=== PATIENT | female | born 1960 | race Caucasian/White ===

== ENCOUNTER 2016-12-05 09:08 | Day surgery (SDC) | payer MEDICARE, BC ==
[2016-12-03 15:42] VITALS: BMI 33.2
[2016-12-05 09:20] VITALS: RESP 16; TEMP 97.9
[2016-12-05] MEDS ORDERED: LACTATED RINGERS 1,000 ML IV SCH (09:30)
[2016-12-05] MEDS ORDERED: TRIAMCINOLONE ACETONIDE 40 MG/ML 1 ML VIAL ONE (09:59)
[2016-12-05] MEDS ORDERED: BUPIVACAINE (PF) 0.5% 30 ML VIAL ONE (09:59)
--- NOTE | 2016-12-05 10:20 | P.PCN ---
Date of Procedure: 12/05/16 Preoperative Diagnosis: Bilateral sacroiliitis Postoperative Diagnosis: Same as above Procedure(s) Performed: Bilateral sacroiliac joint steroid injection under fluoroscopic guidance Anesthesia: MAC, local Surgeon: Willam Mancera Pathology: none sent Condition: stable Disposition: PACU Description of Procedure: The patient was seen in preop holding area consent was obtained then she was brought into the procedure room and placed in prone position. Skin was prepped with ChloraPrep and draped in a sterile manner. Lidocaine 1% was used to numb the skin up at the target points that were chosen as follows: The left sacroiliac joint injection was done first and the C-arm was tilted to the left oblique position with a slight cephalad tilt to superimpose the anterior and posterior joint lines on each other and to get a unified joint line and the target point was at the inferior one third of this unified joint line. I Used 22-gauge 3-1/2 inch Quincke spinal needle for this procedure and after entering the sacroiliac joint I injected 20 mg of Kenalog +2.5 MLS of Marcaine 0.5%. the right sacroiliac joint then was done in the same manner using 20 mg of Kenalog. I gave a total of only 40 mg of Kenalog for this procedure. Patient tolerated procedure well.
--- NOTE | 2016-12-05 10:29 | FL ---
Fluoroscopy HISTORY: Pain 26 seconds fluoroscopy time supplied to the referring clinician. 2 intraoperative C-arm images docum ent the procedure. See dictated report from anesthesia.
[2016-12-05 10:53] VITALS: BP 132/77; PULSE 84
== END 2016-12-05 11:14 | disposition home or self-care (01) ==
LOC: ORPAIN 09:08
PROVIDERS: ATTEND Anesthesiology
DX: M46.1 Sacroiliitis, not elsewhere classified (principal); Z88.5 Allergy status to narcotic agent
CPT/HCPCS: J3301; G0260

== ENCOUNTER → 2016-12-31 | Outpatient (CLI) | payer MEDICARE, BC ==
[2016-12-31 13:41] VITALS: BP 121/82; PULSE 99; RESP 18
--- NOTE | 2016-12-31 14:19 | P.PN ---
Subjective This is follow-up visit for this patient with a history of severe and chronic low back pain secondary to bilateral sacroiliitis, lumbar degenerative disc disease lumbar spondylosis, failed back surgery syndrome lumbar area, we have done interventional pain management injection, bilateral sacroiliac joint steroid injections x3 , and patient will get excellent pain relief (more than 50% reduction in her pain ), after the injection, and is currently on pain medications 1-[place] 10/325 every 4-6 hours 2-Flexeril 10 mg 3 times a day when necessary 3-Cymbalta to 120 mg every the Patient denies any side effects of the medication, denies excessive drowsiness or sleepiness, denies suicidal ideation, and reports that the current pain medication is NOT helping To control the pain and improve activity of daily living Physical Examinations : 1-Constitutiona : Cooperative , not in acute distress . 2-HEENT : nech ; supple , no Lymphadenopathy , no Thyromegaly , normal thyroid size . eyes : no ptosis , no icterus, no photophobia . ENT : normal of hearing , normal oropharynx , no Thrush . 3- Respiratory : Chest clear to auscultations Bilaterally , no wheezing , no Rhonchi . 4- Cardiovascular : regular rate and rhythem , S1 , S2 , no S3 , no S4. 5- Gastrointestinal : abdomen soft no tenderness , bowel sounds positive all four quadrents , no organomegally . 6- Genitourinary : Defferred . 7- neurologic : Cranial nerve II to XII intact , no focal neurological deffecit . 8-psychatric : alert , oriented X 3 , appropriate affect , intact judgment and insight . 9-Lymphatic : no Lymphadenopathy . 10- musculoskeltal : exams of the cervical spine = motor strength normal bilateral upper extremities facet loading test cervical area positive. exams of the Lumber spine = motor strength lower extremities ,thigh and legs .5/5 deep tendon reflexes : normal Knee Jerk , normal ankle Jerk . lumber facet Loading Test positive strait leg raising test positive at 30 degree , RT ,LT , Fabere test positive RT and positive LT . Range of motion: Range of motion in flexion of the lumbar spine 30 degrees Range of motion range of motion of extension of the lumbar spine 10 Sever tenderness over the Sacroiliac joint on the Right , and Left side Assessment and plan = - Chronic low back pain secondary to lumbar degenerative disc disease , lumbar spondylosis, sacroiliitis, and failed back surgeries in the lumbar area , - The patient had more than 50% improvement in her low back pain after the bilateral sacroiliac joint steroid injections , - diagnoses, prognosis, and treatment options including but not limited to physical therapy, surgical interventions, interventional therapies , and medication management including narcotics and adjuvant medication were discussed with the patient and all The questions answered -medication management = she is getting medications refilled from her primary care -procedure= schedule patient to have radiofrequency ablation of the dorsal ramus of L5-S1, and radiofrequency ablation of the lateral branches of S1/S2/S3 he will start on the right side, then later on we do the left side Objective - Vital Signs Vital signs: Vital Signs Temp Pulse 99 12/31/16 13:34 Resp 18 12/31/16 13:34 BP 121/82 12/31/16 13:34 Pulse Ox 97 12/31/16 13:34 Intake & Output 12/30/16 12/31/16 12/31/16 18:59 06:59 18:59 Weight 96.162 kg
== END | disposition home or self-care (01) ==
LOC: PNWHC3 13:17
PROVIDERS: ATTEND Specialist
DX: M51.36 Other intervertebral disc degeneration, lumbar region (principal); M47.896 Other spondylosis, lumbar region; M46.1 Sacroiliitis, not elsewhere classified; M96.1 Postlaminectomy syndrome, not elsewhere classified; Z79.899 Other long term (current) drug therapy
CPT/HCPCS: 99211

== ENCOUNTER 2017-01-11 09:06 | Day surgery (SDC) | payer MEDICARE, BC ==
[2017-01-10 09:25] VITALS: BMI 32.8
[~2017-01-11 09:06] MED LIST: LACTATED RINGERS 1,000 ML IV SCH
[2017-01-11 09:35] VITALS: TEMP 97.8
[2017-01-11] MEDS ORDERED: LIDOCAINE 1% 20 ML VIAL (10MG/ML) FOR IV START INTRADERMA ONE (09:44)
[2017-01-11] MEDS ORDERED: fentaNYL (PF) 50 MCG/ML 2 ML AMP ONE (10:42)
[2017-01-11] MEDS ORDERED: BUPIVACAINE (PF) 0.5% 30 ML VIAL ONE (10:42)
[2017-01-11] MEDS ORDERED: TRIAMCINOLONE ACETONIDE 40 MG/ML 1 ML VIAL ONE (10:42)
[2017-01-11] MEDS ORDERED: MIDAZOLAM 2 MG/2 ML VIAL ONE (10:42)
[2017-01-11] MEDS ORDERED: IV FLUID CONTINUATION 1,000 ML IV ONE (11:38)
[2017-01-11 11:40] VITALS: RESP 18
[2017-01-11 11:49] VITALS: BP 130/71; PULSE 80
--- NOTE | 2017-01-11 12:27 | FL ---
Fluoroscopy HISTORY: Pain 30 seconds fluoroscopy time supplied to the referring clinician. 3 intraoperative C-arm images docum ent the procedure. See dictated report from anesthesia.
--- NOTE | 2017-01-11 12:34 | P.PCN ---
Date of Procedure: 01/11/17 Procedure(s) Performed: PREOPERATIVE DIAGNOSIS: 1-Lumbosacral spondylosis with facet arthropathy without myelopathy. 2- Bilateral sacroiliit. post operative Diagnosis: . 1-Lumbosacral spondylosis with facet arthropathy without myelopathy. 2-bilateral sacroiliit. PROCEDURES: 1- Right radiofrequency thermocoagulation/ablation of the L5 dorsal ramus. 2- Right multi-site radiofrequency thermocoagulation/ablation of the S1 and S2 , The procedure was performed using fluoroscopic guidance during needle placement to assure proper position and maximize safety . ANESTHESIA: LOCAL ANESTHESIA and IV sedation with versed 2 mg and Fentanyle 100 mcg EBL: NONE INDICATION/MEDICAL NECESSITY: History of low back pain secondary to bilateral sacroiliitis and lumbosacral arthropathy unresponsive to more conservative treatments. The patient reported more than 50% relief of pain symptoms following 2 previous diagnostic blocks with Bupivacaine. PROCEDURE DESCRIPTION: The patient was seen and identified in the preoperative area. Risks, benefits, complications, and alternatives were discussed with the patient. The patient agreed to proceed with the procedure and signed the consent. Vital signs were checked before and after the procedure and they remained stable. Patient ambulated to the procedure room and time out was completed. The patient was placed in the prone position on the procedure table and a pillow was placed under the abdomen to reduce lumbar lordosis. The lumbosacral area was prepped and draped in the usual sterile fashion. Critical pause was taken. L5 Dorsal Ramus RF: Using right oblique fluoroscopy, the junction of the transverse process and the superior articular process of the right S1 vertebra, which correspond to the fluoroscopic image of the "eye of the [place] dog" was identified. Subsequently, a 10-cm 20 -gauge radiofrequency cannula with a 10-mm active tip was advanced under fluoroscopic guidance until contact was made with periosteum. At this level, the Sensory testing of the L5 dorsal ramus was performed at 50 Hz and 0 to 1 volt with production of concordant pain starting at 0.5 volt. Motor stimulation was done at 2.5 Hz with stimulation of mulitifidus muscle contration . No radicular symptoms or paresthesias were produced during the testing. Subsequently, the L5 dorsal ramus was subjected to a radiofrequency ablation at 80 degree celsius for 90 seconds . after 0.5% Bupivacaine 1 ml injected at each level after negative aspirations . The needle was withdrawn intact the procedure was repeated on the left side using the same technique. S1, S3, and S3 Lateral Branch RF: The lateral margins of the Right S1, S2, and S3 foramina were identified using AP fluoroscopy. Under fluoroscopic guidance, three 10-cm 20 -gauge radiofrequency cannula with a 10-mm active tip were inserted at 8-10 mm peripheral to the posterior S1 foramen, at various locations using clock-face coordinates. The center of the clock was registered at the lateral margin of the foramen. The 2:30, 4:00, and 5:30 oclock positions were used. At this level , the sensory testing of the S1 lateral branch was performed at 50 Hz and 0 to 1 volt at the three levels with production of concordant pain starting at 0.5 volt. Motor stimulation was done at 2.5 Hz. No radicular symptoms or paresthesias were produced during the testing. Subsequently, the S1 lateral branch was subjected to a radiofrequency ablation at a mode of 90 seconds at 80 degrees Celsius at the 3 levels after negative motor and sensory testing and after injecting 0.5 ml of preservative free Bupivacaine 0.5 %. The same procedure was performed at the level of the S2 foramen. Multiple attempts done to visualize S3 foramina was not successful, for this reason , I did not do the radiofrequency of the lateral branches of S3 The needle was withdrawn intact after each injection. COMPLICATIONS: The patient tolerated the procedure well without any acute complications. DISPOSTION/PLAN: The patient ambulated to the recovery area after the procedure in a stable condition for observation. Patient was reexamined prior to discharge. Patient was observed for 30 minutes in the recovery area and was discharged home, accompanied by an adult, after meeting discharged criteria. Discharge instructions were give to the patient by the staff. Patient was specifically instructed not to drive today and to rest for the rest of the day. The patient will schedule a follow up visit in the clinic in weeks or earlier if needed.
== END 2017-01-11 11:57 | disposition home or self-care (01) ==
LOC: ORPAIN 09:06
PROVIDERS: ATTEND Specialist
DX: M47.817 Spondylosis without myelopathy or radiculopathy, lumbosacral region (principal); M46.97 Unspecified inflammatory spondylopathy, lumbosacral region; M46.1 Sacroiliitis, not elsewhere classified; Z88.5 Allergy status to narcotic agent
CPT/HCPCS: 64640 ×2; 64635; 99152; 99153; J2250; J3301; J3010; 64636

== ENCOUNTER → 2017-04-01 | Outpatient (CLI) | payer MEDICARE, BC ==
[2017-04-01 12:57] VITALS: BP 188/96; PULSE 100; RESP 18; TEMP 98.5
--- NOTE | 2017-04-01 13:15 | P.PN ---
Subjective This is follow-up visit for this patient with a history of severe and chronic low back pain secondary to sacroiliitis and , lumbar spondylosis with facet arthropathy, we have done interventional pain management injection,,, RFA of the dorsal dryness of L5-S1 and RFA the lateral branches S1,S2 ,S3 patient currently doing very well she reports that her pain is under control, she is using Tylenol when necessary and she was occasionally [place] 10/325 Patient denies any side effects of the medication, denies excessive drowsiness or sleepiness, denies suicidal ideation, and reports that the current pain medication is NOT helping To control the pain and improve activity of daily living Patient denies any motor or sensory deficit , patient denies any fever or night sweats, denies any change in the bowel movements or urination Physical Examinations : 1-Constitutiona : Cooperative , not in acute distress . 2-HEENT : nech ; supple , no Lymphadenopathy , no Thyromegaly , normal thyroid size . eyes : no ptosis , no icterus, no photophobia . ENT : normal of hearing , normal oropharynx , no Thrush . 3- Respiratory : Chest clear to auscultations Bilaterally , no wheezing , no Rhonchi . 4- Cardiovascular : regular rate and rhythem , S1 , S2 , no S3 , no S4. 5- Gastrointestinal : abdomen soft no tenderness , bowel sounds positive all four quadrents , no organomegally . 6- Genitourinary : Defferred . 7- neurologic : Cranial nerve II to XII intact , no focal neurological deffecit . 8-psychatric : alert , oriented X 3 , appropriate affect , intact judgment and insight . 9-Lymphatic : no Lymphadenopathy . 10- musculoskeltal : exams of the Lumber spine = motor strength lower extremities ,thigh and legs .03/22 Assessment and plan = - Chronic low back pain secondary to sacroiliitis , lumbar spondylosis with facet arthropathy without myelopathy , Status post radiofrequency ablation of the sacroiliac joint, patient doing very well, she will follow up with the pain clinic when necessary Patient getting prescription from the primary care Objective - Vital Signs Vital signs: Vital Signs Temp 98.5 F 04/01/17 12:48 Pulse 100 04/01/17 12:48 Resp 18 04/01/17 12:48 BP 188/96 04/01/17 12:48 Pulse Ox 97 04/01/17 12:48 Intake & Output 03/31/17 04/01/17 04/01/17 18:59 06:59 18:59 Weight 98.883 kg
== END | disposition home or self-care (01) ==
LOC: PNWHC3 12:10
PROVIDERS: ATTEND Specialist
DX: M47.816 Spondylosis without myelopathy or radiculopathy, lumbar region (principal); M46.86 Other specified inflammatory spondylopathies, lumbar region; M46.1 Sacroiliitis, not elsewhere classified
CPT/HCPCS: 99211

== ENCOUNTER → 2017-08-20 | Outpatient (CLI) | payer MEDICARE, BC ==
[2017-08-20 13:59] VITALS: BP 130/69; PULSE 97; RESP 18; TEMP 98
--- NOTE | 2017-08-20 20:02 | P.CONS ---
History of Present Illness - Reason for Consult Consult date: 08/20/17 - History of Present Illness This is follow-up visit for this patient with a history of severe and chronic low back pain secondary to sacroiliitis , lumbar facet arthropathy, we did interventional pain management injection,, radiofrequency ablation of the sacroiliac joint we've done the right side in December 2016 , and later on we did the radiofrequency of the left sacroiliac joint in February 2017 , she had more than 80% decrease in her pain level after the radiofrequency , she had improved activity of daily livings and she hasn't improved quality of life . Patient denies any motor or sensory deficit, denies change in bowel movement or urination, patient denies any fever or night sweats Past Medical History Past Medical History: COPD, Diabetes Mellitus, GERD/Reflux, Hyperlipidemia, Hypertension, Musculoskeletal Disorder, Respiratory Disorder, Thyroid Disorder Additional Past Medical History / Comment(s): Glaucoma. DIABETIC -DIET CONTROLLED History of Any Multi-Drug Resistant Organisms: None Reported Past Surgical History: Appendectomy, Back Surgery, Section, Cholecystectomy, Hernia Repair, Hysterectomy Additional Past Surgical History / Comment(s): Lumbar fusion X2, LAST with rods and screws. colonoscopy; laparoscopy; right inguinal repair; right breast biopsy; D&C; C-S x 5; right hand surgery; Pain procedures , right and left eye muscle surgery Past Anesthesia/Blood Transfusion Reactions: No Reported Reaction Past Psychological History: Anxiety, Depression, Panic Disorder Additional Psychological History / Comment(s): Borderline personality disorder, Smoking Status: Never smoker Past Alcohol Use History: None Reported Past Drug Use History: None Reported - Past Family History Mother Family Medical History: Cancer Sister(s) Family Medical History: Cancer Medications and Allergies Home Medications Medication Instructions Recorded Confirmed Type Albuterol Sulfate [Proair Hfa] 2 puff INHALATION Q4HR PRN 04/19/14 08/20/17 History Atorvastatin Calcium [Lipitor] 20 mg PO DAILY 04/19/14 08/20/17 History John Paul Cit/Mag/D3/Zn/Sales Assistant/[place]/Bor 2 tab PO DAILY 04/19/14 08/20/17 History [Citracal-Vit D + Magnesium Tab] Cyclobenzaprine [Flexeril] 10 mg PO TID PRN 04/19/14 08/20/17 History DULoxetine HCL [Cymbalta] 120 mg PO DAILY 04/19/14 08/20/17 History Diltiazem Cd [Cardizem CD] 180 mg PO DAILY 04/19/14 08/20/17 History Docusate Sodium [Dulcolax Stool 2 tab PO DAILY 04/19/14 08/20/17 History Softener] LORazepam [Ativan] 2 mg PO TID 04/19/14 08/20/17 History Levothyroxine Sodium [Levoxyl] 25 mcg PO DAILY 04/19/14 08/20/17 History Montelukast [Singulair] 10 mg PO DAILY 04/19/14 08/20/17 History Oxybutynin Chloride [Ditropan XL] 10 mg PO BID 04/19/14 08/20/17 History Pantoprazole Sodium [Protonix] 40 mg PO BID 04/19/14 08/20/17 History Polyethylene Glycol 3350 [Miralax] 1 applic PO BID PRN 04/19/14 08/20/17 History Temazepam [Restoril] 30 mg PO HS PRN 04/19/14 08/20/17 History Topiramate [Topamax] 100 mg PO BID 04/19/14 08/20/17 History buPROPion HCL [Wellbutrin XL] 300 mg PO HS 04/19/14 08/20/17 History buPROPion XL [Wellbutrin XL] 150 mg PO HS 04/19/14 08/20/17 History cloZAPine [Clozaril] 100 mg PO HS 04/19/14 08/20/17 History Aspirin [Adult Low Dose Aspirin EC] 81 mg PO DAILY 12/02/15 08/20/17 History Travoprost [Travatan Z 0.004%] 1 drop BOTH EYES HS 12/02/15 08/20/17 History SUMAtriptan SUCCINATE [Imitrex] 100 mg PO BID PRN 01/24/16 08/20/17 History Potassium Chloride [Klor-Con 8] 8 meq PO BID 02/21/16 08/20/17 History Multivitamins, Thera [Multivitamin 1 tab PO DAILY 04/10/16 08/20/17 History (formulary)] Naloxone [Narcan] 30 mg PO DAILY 08/20/17 08/20/17 History Allergies Allergy/AdvReac Type Severity Reaction Status Date / Time codeine Allergy Rash/Hives, Verified 08/20/17 13:50 VOMITING,ITCHING morphine Allergy Rash/Hives Verified 08/20/17 13:50 Physical Exam Vitals: Vital Signs Temp Pulse Resp BP Pulse Ox 08/20/17 13:54 98 F 97 18 130/69 96 Intake and Output 08/20/17 08/20/17 08/20/17 06:59 14:59 22:59 Other: Weight 106.141 kg Patient Weight 08/21/17 06:59 Weight 106.141 kg Physical Examinations : 1-Constitutiona : Cooperative , not in acute distress . 2-HEENT : nech ; supple , no Lymphadenopathy , normal thyroid size . eyes : no ptosis , no icterus, no photophobia . ENT : normal of hearing , normal oropharynx , no Thrush . 3- Respiratory : Chest clear to auscultations Bilaterally , no wheezing , no Rhonchi . 4- Cardiovascular : regular rate and rhythem , S1 , S2 , no S3 , no S4. 5- Gastrointestinal : abdomen soft no tenderness , bowel sounds positive all four quadrents , no organomegally . 6- Genitourinary : Defferred . 7- neurologic : Cranial nerve II to XII intact , no focal neurological deffecit . 8-psychatric : alert , oriented X 3 , appropriate affect , intact judgment and insight . 9-Lymphatic : no Lymphadenopathy . 10- musculoskeltal : , Lumber spine = normal moter stegnth lower extremities ,thigh and legs .5/5 deep tendon reflexes : normal Knee Jerk , normal ankle Jerk . positive lumber facet Loading Test strait leg raising test negative bilateral, Fabere test negative bilaterally Sever tenderness over the Sacroiliac joint on the Right , and Left side Assessment and Plan Plan: Assessment and plan= chronic low back pain secondary to bilateral sacroiliitis , lumbar spondylosis with lumbar facet arthropathy , Patient had excellent pain relief after the radiofrequency of the sacroiliac joint done more than 6 months ago, and unclean most of the pain is coming from the sacroiliac joint component for this reason patient could benefit from repeat radiofrequency ablation of the sacroiliac joint will start with the right side then later on went to the left side patient will be scheduled to radiofrequency ablation of the dorsal ramus of L5-S1 and radiofrequency ablation of the lateral branches of S1/S2/S3 under fluoroscopy guidance , Time with Patient: Less than 30
== END | disposition home or self-care (01) ==
LOC: PNWHC3 13:40
PROVIDERS: ATTEND Specialist
DX: M47.816 Spondylosis without myelopathy or radiculopathy, lumbar region (principal); M46.86 Other specified inflammatory spondylopathies, lumbar region; M46.1 Sacroiliitis, not elsewhere classified
CPT/HCPCS: 99211

== ENCOUNTER → 2017-09-25 | Outpatient (CLI) | payer MEDICARE, BC ==
[2017-09-25 14:14] VITALS: BP 134/88; PULSE 101; RESP 18; TEMP 98.1
--- NOTE | 2017-09-25 14:52 | P.PN ---
Subjective Progress Note Date: 09/25/17 This is follow-up visit for this patient with a history of severe and chronic low back pain secondary to bilateral sacroiliitis , lumbar spondylosis with facet arthropathy, we have done interventional pain management injection, , radiofrequency ablation of the sacroiliac joint Bilaterally , which was done more than 6 months ago and she got more than 80% improvement of her low back pain that the radiofrequency, currently complaining of severe low back pain and she is due to have a repeat radiofrequency ablation of the sacroiliac joint,. Insurance rejected the procedure, Physical Examinations : 1-Constitutiona : Cooperative , not in acute distress . 2-HEENT : nech ; supple , no Lymphadenopathy , no Thyromegaly , normal thyroid size . eyes : no ptosis , no icterus, no photophobia . ENT : normal of hearing , normal oropharynx , no Thrush . 3- Respiratory : Chest clear to auscultations Bilaterally , no wheezing , no Rhonchi . 4- Cardiovascular : regular rate and rhythem , S1 , S2 , no S3 , no S4. 5- Gastrointestinal : abdomen soft no tenderness , bowel sounds positive all four quadrents , no organomegally . 6- Genitourinary : Defferred . 7- neurologic : Cranial nerve II to XII intact , no focal neurological deffecit . 8-psychatric : alert , oriented X 3 , appropriate affect , intact judgment and insight . 9-Lymphatic : no Lymphadenopathy . 10- musculoskeltal : exams of the cervical spine = motor strength normal bilateral upper extremities facet loading test cervical area positive. exams of the Lumber spine = motor strength lower extremities ,thigh and legs .5/5 deep tendon reflexes : normal Knee Jerk , normal ankle Jerk . lumber facet Loading Test positive strait leg raising test negative bilaterally Fabere test negative bilaterally Range of motion: Range of motion in flexion of the lumbar spine 60 degrees Range of motion range of motion of extension of the lumbar spine 10 Sever tenderness over the Sacroiliac joint on the Right , and Left side Assessment and plan = Chronic low back pain secondary to sacroiliitis , lumbar spondylosis with facet arthropathy without myelopathy , Patient had more than 80% decrease in her low back pain after the radiofrequency ablation of the sacroiliac joint, it would be good candidate to have repeat radiofrequency ablation, the approval for the procedure was rejected by the insurance for this reason patient has to wait for a few months before we can proceed with the frequency ablation of the sacroiliac joint, patient could benefit from bilateral sacroiliac joint steroid injections ,under fluoroscopy guidance procedure risks and benefits and alternatives discussed with the patient she agreed with the preceding Objective - Vital Signs Vital signs: Vital Signs Temp 98.1 F 09/25/17 14:06 Pulse 101 H 09/25/17 14:06 Resp 18 09/25/17 14:06 BP 134/88 09/25/17 14:06 Pulse Ox 96 09/25/17 14:06 Intake & Output 09/24/17 09/25/17 09/25/17 18:59 06:59 18:59 Weight 104.326 kg
== END ==
LOC: PNWHC3 13:56
PROVIDERS: ATTEND Specialist
DX: M47.816 Spondylosis without myelopathy or radiculopathy, lumbar region (principal); M53.3 Sacrococcygeal disorders, not elsewhere classified; M46.86 Other specified inflammatory spondylopathies, lumbar region; Z79.891 Long term (current) use of opiate analgesic
CPT/HCPCS: 99211

== ENCOUNTER 2017-12-05 08:28 | Day surgery (SDC) | payer MEDICARE, BC ==
[2017-11-28 10:06] VITALS: BMI 35.2
[2017-12-05 09:07] VITALS: TEMP 97.5
[2017-12-05 09:16] LABS: Glucose,Whole Blood 108 mg/dL (75-99)
--- NOTE | 2017-12-05 09:53 | P.PCN ---
Date of Procedure: 12/05/17 Procedure(s) Performed: Preoperative diagnoses= 1-bilateral sacroiliitis. 2-lumbar spondylosis with lumbar facet arthropathy without myelopathy Postoperative diagnoses= same as preoperative diagnosis. Procedure= bilateral sacroiliac joint steroid injection under fluoroscopic guidance. Anesthesia= local infiltration with lidocaine 1% 4 ml only , No IV sedations Estimated blood loss=minimal. Procedure indication= the patient had a history of severe chronic low back pain , diagnosed with sacroiliitis and lumbar sacral facet arthropathy unresponsive to conservative treatment. Procedure description= the patient was seen and identified in the preoperative holding area, risks and benefits and alternative of the procedure and possible complications discussed with the patient, and he agreed with the preceding, patient signed the consent, an IV was started, and vital signs were monitored and were stable throughout the procedure, patient was placed in the prone position or table and the lumbosacral area was prepped and draped with a sterile fashion, vital signs were closely monitored during the procedure, the fluoroscopy camera was placed in the contralateral oblique view on the right sacroiliac joint and the lower part of the joint was identified, local infiltration of the skin and subcutaneous tissue with lidocaine 1% 2 mL then a 25-gauge Quincke-type spinal needle advanced slowly under fluoroscopy and placed in the posterior and inferior border of the right sacroiliac joint, placement confirmed with AP and lateral view, and after appropriate needle placement confirmed and after negative aspiration for heme and CSF and there was no paresthesia during the injection, 3 ml of Marcaine 0.5% and 20 mg of Kenalog injected after negative aspiration, the needle removed, and the entire same procedure was repeated for the left sacroiliac joint Patient tolerated the procedure well without any complication, The patient returned to supine position after the back was cleaned and a Band- Aid applied, the patient transported to recovery room in stable condition and he was monitored for 30 minutes before he was discharged home and then patient was reexamined before going home and patient was discharged in stable condition and patient will follow up with the pain clinic in a few weeks
[2017-12-05 10:02] VITALS: RESP 16
--- NOTE | 2017-12-05 10:04 | FL ---
EXAMINATION TYPE: FL guided pain mgmt statistic DATE OF EXAM: 12/05/2017 HISTORY: Flouroscopy time 6 seconds of fluoroscopy provided. IMPRESSION: 1. Fluoroscopy time.
[2017-12-05 10:16] VITALS: BP 139/79; PULSE 86
== END 2017-12-05 10:24 | disposition home or self-care (01) ==
LOC: ORPAIN 08:28
PROVIDERS: ATTEND Specialist
DX: G89.29 Other chronic pain (principal); M46.1 Sacroiliitis, not elsewhere classified; M47.816 Spondylosis without myelopathy or radiculopathy, lumbar region; I10 Essential (primary) hypertension; J44.9 Chronic obstructive pulmonary disease, unspecified; E11.9 Type 2 diabetes mellitus without complications; Z88.5 Allergy status to narcotic agent
CPT/HCPCS: J3301; G0260; 99152

== ENCOUNTER → 2018-01-15 | Outpatient (CLI) | payer MEDICARE, BC ==
[2018-01-15 12:12] VITALS: BP 168/84; PULSE 101; RESP 16
--- NOTE | 2018-01-15 12:42 | P.PN ---
Progress Note - Text Progress Note Date: 01/15/18 This is follow-up visit for this patient with a history of severe and chronic low back pain secondary to bilateral sacroiliitis , lumbar spondylosis with facet arthropathy, and failed back surgery syndrome. The patient had bilateral sacroiliac joint steroid injection and she had temporary relief of her pain afterwards. Physical Examinations : 1-Constitutiona : Cooperative , not in acute distress . 2-HEENT : nech ; supple , no Lymphadenopathy , no Thyromegaly , normal thyroid size . eyes : no ptosis , no icterus, no photophobia . ENT : normal of hearing , normal oropharynx , no Thrush . 3- Respiratory : Chest clear to auscultations Bilaterally , no wheezing , no Rhonchi . 4- Cardiovascular : regular rate and rhythem , S1 , S2 , no S3 , no S4. 5- Gastrointestinal : abdomen soft no tenderness , bowel sounds positive all four quadrents , no organomegally . 6- Genitourinary : Defferred . 7- neurologic : Cranial nerve II to XII intact , no focal neurological deffecit . She has normal and symmetrical muscle strength in the lower extremities. 8-psychatric : alert , oriented X 3 , appropriate affect , intact judgment and insight . 9-Lymphatic : no Lymphadenopathy . 10- musculoskeltal : exams of the cervical spine = motor strength normal bilateral upper extremities facet loading test cervical area positive. exams of the Lumber spine = motor strength lower extremities ,thigh and legs .5/5 deep tendon reflexes : normal Knee Jerk , normal ankle Jerk . lumber facet Loading Test positive strait leg raising test negative bilaterally Fabere test negative bilaterally Range of motion: Range of motion in flexion of the lumbar spine 60 degrees Range of motion range of motion of extension of the lumbar spine 10 Sever tenderness over the Sacroiliac joint on the Right , and Left side Assessment and plan = I will schedule the patient to have right sacroiliac joint frequency ablation including the dorsal ramus of L5 on the right side and then the medial branches of S1-S2 and possibly S3. The patient had this procedure done before and had good improvement. Her questions were answered to her satisfaction. And she will be scheduled for the above-mentioned procedure as soon as possible. The left sacroiliac joint will be done after that.
== END | disposition home or self-care (01) ==
LOC: PNWHC3 11:54
PROVIDERS: ATTEND Anesthesiology
DX: G89.29 Other chronic pain (principal); M54.5 Low back pain; M96.1 Postlaminectomy syndrome, not elsewhere classified; M46.1 Sacroiliitis, not elsewhere classified; M47.816 Spondylosis without myelopathy or radiculopathy, lumbar region; M46.86 Other specified inflammatory spondylopathies, lumbar region
CPT/HCPCS: 99211

== ENCOUNTER 2018-02-27 07:38 | Day surgery (SDC) | payer MEDICARE, BC ==
[2018-02-24 09:14] VITALS: BMI 36.8
[2018-02-27 08:28] VITALS: RESP 16; TEMP 97.7
[2018-02-27] MEDS ORDERED: LIDOCAINE 1% 20 ML VIAL (10MG/ML) FOR IV START INTRADERMA ONE (08:33)
[2018-02-27] MEDS ORDERED: LACTATED RINGERS 1,000 ML IV ONE (08:33)
--- NOTE | 2018-02-27 08:45 | P.PCN ---
Date of Procedure: 02/27/18 Preoperative Diagnosis: 1. Lumbosacral spondylosis 2. Bilateral sacroiliitis Procedure(s) Performed: 1. L5 dorsal ramus radio frequency ablation 2. S1, S2, S3 lateral branches radio frequency ablation Condition: stable Disposition: PACU Description of Procedure: RF of lateral branch: 38275 RF of the L5 Dorsal Ramus and S1, S2, and S3 LB Date of the procedure: PREOPERATIVE DIAGNOSIS: 1. Lumbosacral Spondylosis. 2. Bilateral sacroiliitis. POSTOPERATIVE DIAGNOSIS: 1. Lumbosacral arthropathy. 2. Bilateral sacroiliitis. PROCEDURES: 1. Right radiofrequency thermocoagulation/ablation of the L5 dorsal ramus. 2. Right multi-site radiofrequency thermocoagulation/ablation of the S1, S2, and S3 lateral branchs. The procedure was performed using fluoroscopic guidance during needle placement to assure proper position and maximize safety. PROVIDER: Darwin Cotto M.D. ANESTHESIA: Local Anesthesia, conscious sedation with Versed 2mg, Fentanyl 100 mcgs EBL: NONE INDICATION/MEDICAL NECESSITY: History of low back pain secondary Right Lumbosacral Spondylosis and lumbosacral arthropathy unresponsive to more conservative treatments. This is the first??second?? diagnostic block. The patient reported more than 50% relief of pain symptoms following 2 previous diagnostic blocks with Bupivacaine. PROCEDURE DESCRIPTION: The patient was seen and identified in the preoperative area. Risks, benefits, complications, and alternatives were discussed with the patient. The patient agreed to proceed with the procedure and signed the consent. Vital signs were checked before and after the procedure and they remained stable. Patient ambulated to the procedure room and time out was completed. The patient was placed in the prone position on the procedure table and a pillow was placed under the abdomen to reduce lumbar lordosis. The lumbosacral area was prepped and draped in the usual sterile fashion. Critical pause was taken. L5 Dorsal Ramus RF: Using right oblique fluoroscopy, the junction of the transverse process and the superior articular process of the right S1 vertebra, which correspond to the fluoroscopic image of the "eye of the [place] dog" was identified. Subsequently, a 10-cm 22-gauge radiofrequency cannula with a 10-mm active tip was advanced under fluoroscopic guidance until contact was made with periosteum. At this level, the Sensory testing of the L5 dorsal ramus was performed at 50 Hz and 0 to 1 volt with production of concordant pain starting at 0.5 volt. Motor stimulation was done at 2 Hz with stimulation of mulitifidus muscle contration at 1.5 volts. No radicular symptoms or paresthesias were produced during the testing. Subsequently, the L5 dorsal ramus was subjected to a radiofrequency ablation at a mode of 90 seconds at 80 degrees Celsius after negative motor and sensory testing and after injecting 0.5 ml of preservative free Bupivacaine 0.5??%. The needle was withdrawn intact the procedure was repeated on the left side using the same technique. S1, S3, and S3 Lateral Branch RF: The lateral margins of the Right S1, S2, and S3 foramina were identified using AP fluoroscopy. Under fluoroscopic guidance, three 10-cm 22-gauge radiofrequency cannula with a 10-mm active tip were inserted at 8-10 mm peripheral to the posterior S1 foramen, at various locations using clock-face coordinates. The center of the clock was registered at the lateral margin of the foramen. The 2:30, 4:00, and 5:30 oclock positions were used. At this level , the sensory testing of the S1 lateral branch was performed at 50 Hz and 0 to 1 volt at the three levels with production of concordant pain starting at 0.5 volt. Motor stimulation was done at 2 Hz. No radicular symptoms or paresthesias were produced during the testing. Subsequently, the S1 lateral branch was subjected to a radiofrequency ablation at a mode of 90 seconds at 80 degrees Celsius at the 3 levels after negative motor and sensory testing and after injecting 0.5 ml of preservative free Bupivacaine 0.5??%. The same procedure was performed at the level of the S2 foramen. For the S3 foramen, only the 2:30 and 4:00 oclock positions were used. Sensory and motor testing followed by radiofrequency ablation were performed as described for the S1 and S2 foramina. The same procedure was repeated on the left side using the following locations: The 9:30, 8:00, and 6:30 oclock positions were used for the S1 and S2 foramina and the 9:30 and 8:00 oclock positions were used for the S3 foramen. The needle was withdrawn intact after each injection. COMPLICATIONS: The patient tolerated the procedure well without any acute complications. DISPOSTION/PLAN: The patient ambulated to the recovery area after the procedure in a stable condition for observation. Patient was reexamined prior to discharge. Patient was observed for 30 minutes in the recovery area and was discharged home, accompanied by an adult, after meeting discharged criteria. Discharge instructions were give to the patient by the staff. Patient was specifically instructed not to drive today and to rest for the rest of the day. The patient will schedule a follow up visit in the clinic in 4 weeks.
[2018-02-27] MEDS ORDERED: IV FLUID CONTINUATION 1,000 ML IV ONE (09:32)
--- NOTE | 2018-02-27 09:40 | FL ---
EXAMINATION TYPE: FL guided pain mgmt statistic DATE OF EXAM: 02/27/2018 HISTORY: Flouroscopy time 44 seconds of fluoroscopy provided. IMPRESSION: 1. Fluoroscopy time.
[2018-02-27 09:52] VITALS: BP 129/60; PULSE 90
== END 2018-02-27 10:07 | disposition home or self-care (01) ==
LOC: ORPAIN 07:38
PROVIDERS: ATTEND Anesthesiology
DX: G89.29 Other chronic pain (principal); M47.817 Spondylosis without myelopathy or radiculopathy, lumbosacral region; M46.1 Sacroiliitis, not elsewhere classified; M54.5 Low back pain; I10 Essential (primary) hypertension; E03.9 Hypothyroidism, unspecified; E11.9 Type 2 diabetes mellitus without complications; E66.9 Obesity, unspecified; Z68.36 Body mass index [BMI] 36.0-36.9, adult; Z88.5 Allergy status to narcotic agent
CPT/HCPCS: 64640 ×3; 64635; J2250; J3301; J2001; J3010; 99152; 99153

== ENCOUNTER 2018-04-24 07:34 | Day surgery (SDC) | payer MEDICARE, BC ==
[2018-04-23 09:49] VITALS: BMI 36.8
[2018-04-24] MEDS ORDERED: LACTATED RINGERS 1,000 ML IV SCH (08:15)
[2018-04-24 08:25] VITALS: TEMP 97.2
[2018-04-24 09:31] VITALS: BP 130/77; PULSE 92; RESP 18
--- NOTE | 2018-04-24 09:47 | P.PCN ---
Date of Procedure: 04/24/18 Surgeon: Russ Shi Pathology: none sent Condition: stable Disposition: PACU Description of Procedure: PREOPERATIVE DIAGNOSIS: 1-Bilateral sacroiliitis. 2 Lumbar DDD POSTOPERATIVE DIAGNOSIS:. 1-Bilateral sacroiliitis. 2 Lumbar DDD PROCEDURES: RIGHT Sacroiliac joint steroid injection with fluoroscopic guidance ANESTHESIA: Local with 1% lidocaine; conscious sedation EBL: Minimal. PROCEDURE INDICATIONS: This patient with a history of low back pain secondary to sacroiliitis and lumbar DDD unresponsive to conservative management. Mild relief but persistent pain after R SI RFA, requesting R SIJ injection today. No use of blood thinners. PROCEDURE DESCRIPTION: The patient was seen and identified in the preoperative area. Risks, benefits, complications, and alternatives were discussed with the patient (including but not limited to incomplete pain relief, bleeding, infection, nerve damage, and allergies to medications), the patient agreed to proceed with the procedure and signed the consent after all questions were answered. Patient was taken to the OR and time out was completed to verify proper patient , position, laterality of pain, and allergies. Pt was placed in the prone position and a pillow was placed under the abdomen to reduce lumbar lordosis. The lumbosacral area was prepped and draped in the usual sterile fashion. Critical pause was taken. Vital signs were closely monitored during the procedure. The fluoroscopic camera was placed in contralateral oblique view and right sacroiliiac joint lower pole was identified. After local infiltration with 1% lidocaine 2 ml, Subsequently, a 22-gauge 3.5 inch spinal needle was introduced into the posteroinferior aspect of the right sacroiliac joint under direct fluoroscopic visualization. Subsequently, 4 ml of a solution of a total of 4 ml solution containing total 3 mL of 0.5% preservative-free ropivacaine mixed with 40 mg of Kenalog was injected after negative aspiration for CSF, blood, and air and negative for paresthesia. The entire procedure was repeated on the left side as above. Needle was withdrawn intact. Skin was cleansed, and bandages were applied. COMPLICATIONS: None. COMMENTS: DISPOSITION / PLANS: The patient was placed in a supine position and transferred to the recovery area in a stable condition for observation and was discharged from the recovery room after meeting discharge criteria. Home discharge instructions given to the patient by the staff. The patient was reexamined prior to discharge. The patient will schedule a follow up in clinic in 3-4 weeks.
[2018-04-24 09:55] LABS: Glucose,Whole Blood 104 mg/dL (75-99)
--- NOTE | 2018-04-28 12:53 | FL ---
EXAMINATION TYPE: FL guidance operating room DATE OF EXAM: 04/24/2018 HISTORY: Flouroscopy time 3 seconds of fluoroscopy provided. IMPRESSION: 1. Fluoroscopy time.
== END 2018-04-24 09:47 | disposition home or self-care (01) ==
LOC: ORPAIN 07:34
PROVIDERS: ATTEND Anesthesiology
DX: M46.1 Sacroiliitis, not elsewhere classified (principal); M51.36 Other intervertebral disc degeneration, lumbar region; I10 Essential (primary) hypertension; E78.5 Hyperlipidemia, unspecified; Z88.5 Allergy status to narcotic agent
CPT/HCPCS: G0260; J3010; Q9966; 27096

== ENCOUNTER → 2018-05-08 | Outpatient (CLI) | payer MEDICARE, BC ==
[2018-05-08 15:10] VITALS: BP 146/89; PULSE 88; RESP 16
--- NOTE | 2018-05-08 15:24 | P.PAINPG ---
Subjective Progress Note Date: 05/08/18 This is follow-up visit for this patient with a history of severe and chronic low back pain secondary to sacroiliitis , lumbar spondylosis with facet arthropathy, We have done interventional pain procedures radiofrequency ablation of the right sacroiliac joint and right sacroiliac joint steroid injection Patients currently on [place] 5/325 every 6 hours, she is getting prescription from her primary care Patient denies any side effects of the medication, denies excessive drowsiness or sleepiness, denies suicidal ideation, and reports that the current pain medication is helping to control the pain and improve activity of daily living Patient denies any motor or sensory deficit , patient denies any fever or night sweats, denies any change in the bowel movements or urination Physical Examinations : 1-Constitutional : Cooperative , not in acute distress . 2-HEENT : nech ; supple , no Lymphadenopathy , no Thyromegaly , normal thyroid size . eyes : no ptosis , no icterus, no photophobia . ENT : normal of hearing , normal oropharynx , no Thrush . 3- Respiratory : Chest clear to auscultations Bilaterally , no wheezing , no Rhonchi . 4- Cardiovascular : regular rate and rhythem , S1 , S2 , no S3 , no S4. 5- Gastrointestinal : abdomen soft no tenderness , bowel sounds positive all four quadrents , no organomegally . 6- Genitourinary : Defferred . 7- neurologic: Cranial nerve II to XII intact , no focal neurological deffecit . 8- Psychatric: alert , oriented X 3 , appropriate affect , intact judgment and insight . 9- Lymphatic : no Lymphadenopathy . 10- Musculoskeltal : exams of the cervical spine = motor strength normal bilateral upper extremities facet loading test cervical area positive. exams of the Lumber spine =motor strength lower extremities ,thigh and legs .5/5 deep tendon reflexes : normal Knee Jerk , normal ankle Jerk . lumber facet Loading Test positive strait leg raising test positive at 60 degree , RT ,LT , Fabere test positive RT and positive LT . Range of motion: Range of motion in flexion of the lumbar spine 30 degrees Range of motion range of motion of extension of the lumbar spine 10 tenderness over the Sacroiliac joint on the Right , and Left side Assessment and plan = Chronic low back pain secondary to sacroiliitis , lumbar spondylosis with facet arthropathy without myelopathy Status post right sacroiliac joint steroid injection , radiofrequency ablation of the right sacroiliac joint. Patient doing well and her pain improved significantly, patient will follow up with the pain clinic when necessary Objective - Vital Signs Vital signs: Vital Signs Temp Pulse 88 05/08/18 15:02 Resp 16 05/08/18 15:02 BP 146/89 05/08/18 15:02 Pulse Ox 96 05/08/18 15:02 Intake & Output 05/07/18 05/08/18 05/08/18 18:59 06:59 18:59 Weight 108.409 kg PQRS Measure Charge Sheet Measure #130: Documentation of Current Meds in Medical Chart: Patient's medications documented in chart Measure #226: Tobacco Use: Screen & Cessation Intervention: Pt not a tobacco user Measure #111: Pneumonia Vaccination: Pneumococcal vaccine administered or previously received Measure #47: Advance Care Plan: Advance care planning discussed & documented, plan or surrogate given Measure #412: Opioid Treatment Agreement: No documentation of signed opioid treatment agreement Measure #408: Opioid Therapy Follow-up Evaluation: Patient had NO f/u eval minimum every 3 months during opioid therapy Measure #317: Preventitive Care & Scrn High Bld Press & F/U: Pre-hypertensive or hypertensive BP documented, pt will f/u with PCP Measure #128: Body Mass Index (BMI) Screening & Follow-up: BMI documented ABOVE normal parameters - f/u documented Measure #131: Pain Assessment & Follow-up: Pain positive & plan documented, Follow-up PRN Measure #431: Unhealthy Alcohol Use Preventative Care & Scrn: Patient not identified as an unhealthy alcohol user PQRS Narrative: Smoking Status Never smoker Do You Want the Pneumonia No Vaccine AT THIS TIME? Narcotic Agreement Date Signed 04/19/14 Blood Pressure 146/89 Pain Intensity [Lower Medial 2 Back] Scale Used Numeric (1 - 10) Hx Alcohol Use (MH) No Home Medications: Ambulatory Orders Albuterol Sulfate [Proair Hfa] 2 puff INHALATION Q4HR PRN 04/19/14 Atorvastatin Calcium [Lipitor] 20 mg PO DAILY 04/19/14 John Paul Cit/Mag/D3/Zn/Incinerator Operator/[place]/Bor [Citracal-Vit D + Magnesium Tab] 2 tab PO DAILY 04/19/14 Cyclobenzaprine [Flexeril] 10 mg PO TID PRN 04/19/14 DULoxetine HCL [Cymbalta] 120 mg PO DAILY 04/19/14 Diltiazem Cd [Cardizem CD] 180 mg PO DAILY 04/19/14 Docusate Sodium [Dulcolax Stool Softener] 2 tab PO DAILY 04/19/14 LORazepam [Ativan] 2 mg PO TID 04/19/14 Levothyroxine Sodium [Levoxyl] 25 mcg PO DAILY 04/19/14 Montelukast [Singulair] 10 mg PO DAILY 04/19/14 Pantoprazole Sodium [Protonix] 40 mg PO BID 04/19/14 Polyethylene Glycol 3350 [Miralax] 1 applic PO BID PRN 04/19/14 Topiramate [Topamax] 100 mg PO BID 04/19/14 buPROPion HCL [Wellbutrin XL] 450 mg PO HS 04/19/14 cloZAPine [Clozaril] 100 mg PO HS 04/19/14 Aspirin [Adult Low Dose Aspirin EC] 81 mg PO DAILY 12/02/15 Travoprost [Travatan Z 0.004%] 1 drop BOTH EYES HS 12/02/15 SUMAtriptan SUCCINATE [Imitrex] 100 mg PO BID PRN 01/24/16 Potassium Chloride [Klor-Con 8] 8 meq PO BID 02/21/16 Multivitamins, Thera [Multivitamin (formulary)] 1 tab PO DAILY 04/10/16 HYDROcodone/APAP 5-325MG [[place] 5-325] 1 tab PO Q4HR PRN 10/22/17 Lisdexamfetamine Dimesylate [Vyvanse] 30 mg PO QAM 10/22/17 Temazepam [Restoril] 30 mg PO HS PRN 10/22/17 Vits A,C,E/Lutein/Minerals [Ocuvite with Lutein Tablet] 1 each PO DAILY Albuterol Inhaler [Ventolin Hfa Inhaler] 2 puff INHALATION Q4HR PRN 01/15/18 Fluticasone/Vilanterol [Breo Ellipta 100-25 Mcg Inhaler] 1 puff INHALATION DAILY 01/15/18 Controlled Substance Measures - Controlled Substance Measures Is patient prescribed a controlled substance at discharge?: No When asked, does pt state using other controlled substances?: No If prescribed controlled substance>3 days was MAPS reviewed?: No If Rx opioid, was Start Talking consent form obtained?: No If opioid is for acute pain is fill amount 7 days or less?: No Was information provided regarding opioid addiction?: No
== END | disposition home or self-care (01) ==
LOC: PNWHC3 13:06
PROVIDERS: ATTEND Specialist
DX: G89.29 Other chronic pain (principal); M47.816 Spondylosis without myelopathy or radiculopathy, lumbar region; M46.96 Unspecified inflammatory spondylopathy, lumbar region; M53.3 Sacrococcygeal disorders, not elsewhere classified; Z79.899 Other long term (current) drug therapy; Z79.82 Long term (current) use of aspirin; Z79.891 Long term (current) use of opiate analgesic
CPT/HCPCS: 99211

== ENCOUNTER → 2018-07-15 | Outpatient (CLI) | payer MEDICARE, BC ==
[2018-07-15 13:45] VITALS: BP 164/92; PULSE 91; RESP 16
--- NOTE | 2018-07-15 14:03 | P.PAINPG ---
Subjective Progress Note Date: 07/15/18 Principal diagnosis: bilateral sacroiliitis This is a 58-year-old woman with a history of bilateral low back pain. She's had previous back surgery. She is undergone previous diagnostic sacroiliac joint injections. This was very helpful in reducing her pain. The relief is short-lived. Her pain is now significantly exacerbated and she is requesting to undergo radio frequency ablation of her sacroiliac joints. She has had this scheduled in the past but has canceled the appointment. Objective - Vital Signs Vital signs: Vital Signs Temp Pulse 91 07/15/18 13:38 Resp 16 07/15/18 13:38 BP 164/92 07/15/18 13:38 Pulse Ox 96 07/15/18 13:38 Intake & Output 07/14/18 07/15/18 07/15/18 18:59 06:59 18:59 Weight 107.955 kg - Exam General: The patient is alert and oriented. Patient is not sedated Patient answers all question appropriately. She walks with a hunched over gait. Cardiac: Heart is regular in rate and rhythm Respiratory: Clear to auscultation. No audible wheezes. Abdomen: Soft nontender nondistended. Lower extremities: Strength is normal bilaterally. Sensation is normal bilaterally. Reflexes are preserved and symmetric bilaterally. Facet loading maneuvers are positive bilaterally. She is very tender to palpation over her sacral iliac joints bilaterally. Straight leg raise is negative bilaterally. Assessment and Plan (1) Bilateral sacroiliitis Narrative/Plan: Plan of Care 1. Medications: Patient does not receive pain medications from our office. She will continue taking these medications as per her prescribing physician. I have reviewed the patient's MAPS report and it reveals expected results. Patient has signed an opiate agreement as well as opiate consent for treatment in our clinic. They understand the risks and benefits of opiate medications. They are aware of the potential for addiction. 2. Interventions: We will schedule patient for right sacroiliac joint radio frequency ablation. She may be scheduled for a left sacral iliac radio frequency ablation after this. 3. Referrals: None 4. Testing: None 5. Follow-up: Radiofrequency ablation will be scheduled for the right sacroiliac joint. Current Visit: Yes Status: Acute Code(s): M46.1 - SACROILIITIS, NOT ELSEWHERE CLASSIFIED SNOMED Code(s): 43676278 PQRS Measure Charge Sheet Measure #130: Documentation of Current Meds in Medical Chart: Patient not eligible for medications to be documented Measure #226: Tobacco Use: Screen & Cessation Intervention: Pt not a tobacco user Measure #111: Pneumonia Vaccination: Pneumococcal vaccine NOT administered or previously given Measure #47: Advance Care Plan: Advance care planning discussed & documented, pt chose/unable to give Measure #412: Opioid Treatment Agreement: No documentation of signed opioid treatment agreement Measure #408: Opioid Therapy Follow-up Evaluation: Patient had NO f/u eval minimum every 3 months during opioid therapy Measure #317: Preventitive Care & Scrn High Bld Press & F/U: Pre-hypertensive or hypertensive BP documented, pt will f/u with PCP Measure #128: Body Mass Index (BMI) Screening & Follow-up: BMI documented ABOVE normal parameters - f/u documented Measure #131: Pain Assessment & Follow-up: Pain positive & plan documented Measure #431: Unhealthy Alcohol Use Preventative Care & Scrn: Patient not identified as an unhealthy alcohol user PQRS Narrative: Smoking Status Never smoker Do You Want the Pneumonia Vaccine Up to Date Vaccine AT THIS TIME? Narcotic Agreement Date Signed 04/19/14 Blood Pressure 164/92 Pain Intensity [Bilateral 9 Lower Back] Scale Used Numeric (1 - 10) Hx Alcohol Use (MH) No Home Medications: Ambulatory Orders Albuterol Sulfate [Proair Hfa] 2 puff INHALATION Q4HR PRN 04/19/14 Atorvastatin Calcium [Lipitor] 20 mg PO DAILY 04/19/14 John Paul Cit/Mag/D3/Zn/Vending Technician/[place]/Bor [Citracal-Vit D + Magnesium Tab] 2 tab PO DAILY 04/19/14 Cyclobenzaprine [Flexeril] 10 mg PO TID PRN 04/19/14 DULoxetine HCL [Cymbalta] 120 mg PO DAILY 04/19/14 Diltiazem Cd [Cardizem CD] 180 mg PO DAILY 04/19/14 Docusate Sodium [Dulcolax Stool Softener] 2 tab PO DAILY 04/19/14 LORazepam [Ativan] 2 mg PO TID 04/19/14 Levothyroxine Sodium [Levoxyl] 25 mcg PO DAILY 04/19/14 Montelukast [Singulair] 10 mg PO DAILY 04/19/14 Pantoprazole Sodium [Protonix] 40 mg PO BID 04/19/14 Polyethylene Glycol 3350 [Miralax] 1 applic PO BID PRN 04/19/14 Topiramate [Topamax] 100 mg PO BID 04/19/14 buPROPion HCL [Wellbutrin XL] 450 mg PO HS 04/19/14 cloZAPine [Clozaril] 100 mg PO HS 04/19/14 Aspirin [Adult Low Dose Aspirin EC] 81 mg PO DAILY 12/02/15 Travoprost [Travatan Z 0.004%] 1 drop BOTH EYES HS 12/02/15 SUMAtriptan SUCCINATE [Imitrex] 100 mg PO BID PRN 01/24/16 Potassium Chloride [Klor-Con 8] 8 meq PO BID 02/21/16 Multivitamins, Thera [Multivitamin (formulary)] 1 tab PO DAILY 04/10/16 Lisdexamfetamine Dimesylate [Vyvanse] 30 mg PO QAM 10/22/17 Temazepam [Restoril] 30 mg PO HS PRN 10/22/17 Vits A,C,E/Lutein/Minerals [Ocuvite with Lutein Tablet] 1 each PO DAILY Albuterol Inhaler [Ventolin Hfa Inhaler] 2 puff INHALATION Q4HR PRN 01/15/18 Fluticasone/Vilanterol [Breo Ellipta 100-25 Mcg Inhaler] 1 puff INHALATION DAILY 01/15/18 HYDROcodone/APAP 7.5-325MG [[place] 7.5-325] 1 tab PO Q4-6H PRN 07/15/18 Controlled Substance Measures - Controlled Substance Measures Is patient prescribed a controlled substance at discharge?: No
== END | disposition home or self-care (01) ==
LOC: PNWHC3 12:47
PROVIDERS: ATTEND Pain Medicine Pain Medicine
DX: M46.1 Sacroiliitis, not elsewhere classified (principal); Z79.899 Other long term (current) drug therapy; Z79.82 Long term (current) use of aspirin; Z79.891 Long term (current) use of opiate analgesic
CPT/HCPCS: 99211

== ENCOUNTER 2018-07-16 08:57 | Day surgery (SDC) | payer MEDICARE, BC ==
[2018-07-16 09:18] VITALS: RESP 16; TEMP 97.6
--- NOTE | 2018-07-16 11:19 | P.PCN ---
Date of Procedure: 07/16/18 Procedure(s) Performed: PREOPERATIVE DIAGNOSIS: 1-Lumbosacral spondylosis with facet arthropathy without myelopathy. 2- sacroiliit. post operative Diagnosis: . 1-Lumbosacral spondylosis with facet arthropathy without myelopathy. 2-sacroiliit. PROCEDURES: 1- Left radiofrequency thermocoagulation/ablation of the L5 dorsal ramus. 2- Left multi-site radiofrequency thermocoagulation/ablation of the S1, S2, lateral branchs. The procedure was performed using fluoroscopic guidance during needle placement to assure proper position and maximize safety ANESTHESIA: LOCAL ( no IV sedations used as per pateints request ) EBL: 5 ml INDICATION/MEDICAL NECESSITY: History of low back pain secondary to l bilateral sacroiliitis and lumbosacral arthropathy unresponsive to more conservative treatments. The patient reported more than 50% relief of pain symptoms following 2 previous diagnostic blocks with Bupivacaine. PROCEDURE DESCRIPTION: The patient was seen and identified in the preoperative area. Risks, benefits, complications, and alternatives were discussed with the patient. The patient agreed to proceed with the procedure and signed the consent. Vital signs were checked before and after the procedure and they remained stable. Patient ambulated to the procedure room and time out was completed. The patient was placed in the prone position on the procedure table and a pillow was placed under the abdomen to reduce lumbar lordosis. The lumbosacral area was prepped and draped in the usual sterile fashion. Critical pause was taken. L5 Dorsal Ramus RF: Using right oblique fluoroscopy, the junction of the transverse process and the superior articular process of the left S1 vertebra, which correspond to the fluoroscopic image of the "eye of the [place] dog" was identified. Subsequently, a 10-cm 20 -gauge radiofrequency cannula with a 10-mm active tip was advanced under fluoroscopic guidance until contact was made with periosteum. At this level, the Sensory testing of the L5 dorsal ramus was performed at 50 Hz and 0 to 1 volt with production of concordant pain starting at 0.5 volt. Motor stimulation was done at 2.5 Hz with stimulation of mulitifidus muscle contration . No radicular symptoms or paresthesias were produced during the testing. Subsequently, the L5 dorsal ramus was subjected to a radiofrequency ablation at 80 degree celsius for 90 seconds . after 0.5% Bupivacaine 1 ml injected at each level after negative aspirations . S1, S3, Lateral Branch RF: The lateral margins of the left S1, S2, foramina were identified using AP fluoroscopy. Under fluoroscopic guidance, three 10-cm 20 -gauge radiofrequency cannula with a 10-mm active tip were inserted at 8-10 mm peripheral to the posterior S1 foramen, at various locations using clock-face coordinates. The center of the clock was registered at the lateral margin of the foramen. The 9: 30, 8:00, and 6:30 oclock positions were used. At this level, the sensory testing of the S1 lateral branch was performed at 50 Hz and 0 to 1 volt at the three levels with production of concordant pain starting at 0.5 volt. Motor stimulation was done at 2.5 Hz. No radicular symptoms or paresthesias were produced during the testing. Subsequently, the S1 lateral branch was subjected to a radiofrequency ablation at a mode of 90 seconds at 80 degrees Celsius at the 3 levels after negative motor and sensory testing and after injecting 0.5 ml of preservative free Bupivacaine 0.5 %. The same procedure was performed at the level of the S2 foramen. ( I did not visualize S3 foramina ,and the RFA of the lateral branches of S3 was not done ) The needle was withdrawn intact after each injection. COMPLICATIONS: The patient tolerated the procedure well without any acute complications. DISPOSTION/PLAN: The patient ambulated to the recovery area after the procedure in a stable condition for observation. Patient was reexamined prior to discharge. Patient was observed for 30 minutes in the recovery area and was discharged home, accompanied by an adult, after meeting discharged criteria. Discharge instructions were give to the patient by the staff. Patient was specifically instructed not to drive today and to rest for the rest of the day. The patient will schedule a follow up visit in the clinic in weeks or earlier if needed.
[2018-07-16 11:44] VITALS: BP 148/91; PULSE 91
--- NOTE | 2018-07-16 14:55 | FL ---
Fluoroscopy HISTORY: Pain 31 seconds fluoroscopy time supplied to the referring clinician. 6 intraoperative C-arm images docum ent the procedure. See dictated report from anesthesia.
== END 2018-07-16 11:56 | disposition home or self-care (01) ==
LOC: ORPAIN 08:57
PROVIDERS: ATTEND Specialist
DX: M46.1 Sacroiliitis, not elsewhere classified (principal); M47.817 Spondylosis without myelopathy or radiculopathy, lumbosacral region
CPT/HCPCS: 64450; 64635; J3301; 64636

== ENCOUNTER → 2018-09-01 | Outpatient (CLI) | payer MEDICARE, BC ==
[2018-09-01 13:55] VITALS: BP 138/76; PULSE 95; RESP 16
--- NOTE | 2018-09-01 14:09 | P.PN ---
Subjective Progress Note Date: 09/01/18 This is a 58-year-old female with history of failed back surgery syndrome and chronic axial lower back pain. She did have sacroiliac joint RFA recently was gave her 2 week of pain relief only. She does receive [place] from her primary care physician for her pain. She denies any bowel or bladder dysfunction or any weakness in the lower extremities. Today, pt denies new-onset weakness, bowel/bladder incontinence, or any other signs or symptoms of cauda equina syndrome. There are no signs of acute intoxication, and no indications of medication diversion or overuse. In addition to above, 13-point review of systems is also negative for chest pain , shortness of breath, changes in vision, changes in hearing, new onset weakness , abdominal pain, diarrhea, extreme fatigue, malaise, fever, skin changes, homicidal or suicidal ideation, or bowel or bladder incontinence. Vital Signs: Reviewed in EMR Gen: AAOx3, NAD HEENT: PERRLA,hearing grossly normal Pulm: resp unlabored,CTA Heart:S1,S2, No Mur Neck: supple, trachea midline Neuro exam of the lower extremities: Decreased but symmetrical knee reflexes and absent ankle reflexes. Decreased knee flexion and extension to 4 out of 5 bilaterally and normal ankle flexion and extension and hip flexion adduction and abduction. Straight leg raising test: Negative bilaterally Tenderness in the paravertebral musculature: Positive on both sides Neuro: CN II-XII grossly intact, Imaging: Reviewed in EMR/chart Assessment: Lumbar spondylosis without myelopathy Failed back surgery syndrome Morbid obesity Opioid dependence Plan: 1. Explanation: Opioid and psychological risk scores were reviewed. Diagnoses , prognoses, and multiple treatment options including but not limited to physical therapy, interventional therapies, adjuvant medical therapies, narcotic medication therapies, and surgery were discussed with the patient and all questions were answered to the patient's satisfaction. 2. Opioid agreement: We do not prescribe opioids. 3. Counseling: The patient was counseled extensively on SMOKING CESSATION, BODY MASS INDEX, EXERCISE. Specifically, the patient was instructed regarding the importance of smoking cessation, obesity, and exercise in the context of both chronic pain and overall health. 4. Procedures: None at this point but she might benefit from getting diagnostic medial branch block above her fusion level. 5. Consultations: None 6. Investigations: None 7. Medications: None 8. Disposition: Return to clinic in 2 months for reevaluation Objective - Vital Signs Vital signs: Vital Signs Temp Pulse 95 09/01/18 13:43 Resp 16 09/01/18 13:43 BP 138/76 09/01/18 13:43 Pulse Ox 95 09/01/18 13:43 Intake & Output 08/31/18 09/01/18 09/01/18 18:59 06:59 18:59 Weight 107.955 kg
== END | disposition home or self-care (01) ==
LOC: PNWHC3 12:23
PROVIDERS: ATTEND Anesthesiology
DX: M47.816 Spondylosis without myelopathy or radiculopathy, lumbar region (principal); M96.1 Postlaminectomy syndrome, not elsewhere classified; F11.20 Opioid dependence, uncomplicated; E66.01 Morbid (severe) obesity due to excess calories; Z68.36 Body mass index [BMI] 36.0-36.9, adult
CPT/HCPCS: 99211

== ENCOUNTER → 2018-10-27 | Outpatient (CLI) | payer MEDICARE, BC ==
[2018-10-27 12:16] VITALS: BP 146/89; PULSE 94; RESP 16
--- NOTE | 2018-10-29 05:42 | P.PN ---
Subjective Progress Note Date: 10/27/18 This is follow-up visit for this patient with a history of severe and chronic low back pain secondary to sacroiliitis , lumbar spondylosis with facet arthropathy, We have done interventional pain procedures radiofrequens ablation of the sacroiliac joint and right sacroiliac joint steroid injection Patients currently on [place] 7,5/325 every 6 hours, Flexeril 10 3 times a day , Cymbalta daily she is getting prescription from her primary care Patient denies any side effects of the medication, denies excessive drowsiness or sleepiness, denies suicidal ideation, and reports that the current pain medication is helping to control the pain and improve activity of daily living Patient denies any motor or sensory deficit , patient denies any fever or night sweats, denies any change in the bowel movements or urination Physical Examinations : 1-Constitutional : Cooperative , not in acute distress . 2-HEENT : nech ; supple , no Lymphadenopathy , no Thyromegaly , normal thyroid size . eyes : no ptosis , no icterus, no photophobia . ENT : normal of hearing , normal oropharynx , no Thrush . 3- Respiratory : Chest clear to auscultations Bilaterally , no wheezing , no Rhonchi . 4- Cardiovascular : regular rate and rhythem , S1 , S2 , no S3 , no S4. 5- Gastrointestinal : abdomen soft no tenderness , bowel sounds positive all four quadrents , no organomegally . 6- Genitourinary : Defferred . 7- neurologic: Cranial nerve II to XII intact , no focal neurological deffecit . 8- Psychatric: alert , oriented X 3 , appropriate affect , intact judgment and insight . 9- Lymphatic : no Lymphadenopathy . 10- Musculoskeltal : exams of the cervical spine = motor strength normal bilateral upper extremities facet loading test cervical area positive. exams of the Lumber spine =motor strength lower extremities ,thigh and legs .5/5 deep tendon reflexes : normal Knee Jerk , normal ankle Jerk . lumber facet Loading Test positive strait leg raising test positive at 60 degree , RT ,LT , Fabere test positive RT and positive LT . Range of motion: Range of motion in flexion of the lumbar spine 30 degrees Range of motion range of motion of extension of the lumbar spine 10 tenderness over the Sacroiliac joint on the Right , and Left side Assessment and plan = Chronic low back pain secondary to sacroiliitis , lumbar spondylosis with facet arthropathy without myelopathy She had good result with the , radiofrequency ablation of the right sacroiliac joint. Done more than 6 months ago , and currently she is complaining of severe pain in the low back area mostly on the right side, she could benefit from repeat radiofrequency ablation of the right side L5-S1 dorsal ramus, and radiofrequency ablation of the lateral branches of S1/S2/ S3 PQRS Measure Charge Sheet Measure #130: Documentation of Current Meds in Medical Chart: Patient's medications documented in chart Measure #226: Tobacco Use: Screen & Cessation Intervention: Pt not a tobacco user Measure #111: Pneumonia Vaccination: Pneumococcal vaccine administered or previously received Measure #47: Advance Care Plan: Advance care planning discussed & documented, plan or surrogate given Measure #412: Opioid Treatment Agreement: No documentation of signed opioid treatment agreement Measure #408: Opioid Therapy Follow-up Evaluation: Patient had NO f/u eval minimum every 3 months during opioid therapy Measure #317: Preventitive Care & Scrn High Bld Press & F/U: Pre-hypertensive or hypertensive BP documented, pt will f/u with PCP Measure #128: Body Mass Index (BMI) Screening & Follow-up: BMI documented ABOVE normal parameters - f/u documented Measure #131: Pain Assessment & Follow-up: Pain positive & plan documented, Follow-up PRN Measure #431: Unhealthy Alcohol Use Preventative Care & Scrn: Patient not identified as an unhealthy alcohol user PQRS Narrative: Home Medications: Ambulatory Orders Albuterol Sulfate [Proair Hfa] 2 puff INHALATION Q4HR PRN 04/19/14 Atorvastatin Calcium [Lipitor] 20 mg PO DAILY 04/19/14 John Paul Cit/Mag/D3/Zn/T[employer] 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 [Citracal-Vit D + Magnesium Tab] 2 tab PO DAILY 04/19/14 Cyclobenzaprine [Flexeril] 10 mg PO TID PRN 04/19/14 DULoxetine HCL [Cymbalta] 120 mg PO DAILY 04/19/14 Diltiazem Cd [Cardizem CD] 180 mg PO DAILY 04/19/14 Docusate Sodium [Dulcolax Stool Softener] 2 tab PO DAILY 04/19/14 LORazepam [Ativan] 2 mg PO TID 04/19/14 Levothyroxine Sodium [Levoxyl] 25 mcg PO DAILY 04/19/14 Montelukast [Singulair] 10 mg PO DAILY 04/19/14 Pantoprazole Sodium [Protonix] 40 mg PO BID 04/19/14 Polyethylene Glycol 3350 [Miralax] 1 applic PO BID PRN 04/19/14 Topiramate [Topamax] 100 mg PO BID 04/19/14 buPROPion HCL [Wellbutrin XL] 450 mg PO HS 04/19/14 cloZAPine [Clozaril] 100 mg PO HS 04/19/14 Aspirin [Adult Low Dose Aspirin EC] 81 mg PO DAILY 12/02/15 Travoprost [Travatan Z 0.004%] 1 drop BOTH EYES HS 12/02/15 SUMAtriptan SUCCINATE [Imitrex] 100 mg PO BID PRN 01/24/16 Potassium Chloride [Klor-Con 8] 8 meq PO BID 02/21/16 Multivitamins, Thera [Multivitamin (formulary)] 1 tab PO DAILY 04/10/16 HYDROcodone/APAP 5-325MG [[place] 5-325] 1 tab PO Q4HR PRN 10/22/17 Lisdexamfetamine Dimesylate [Vyvanse] 30 mg PO QAM 10/22/17 Temazepam [Restoril] 30 mg PO HS PRN 10/22/17 Vits A,C,E/Lutein/Minerals [Ocuvite with Lutein Tablet] 1 each PO DAILY Albuterol Inhaler [Ventolin Hfa Inhaler] 2 puff INHALATION Q4HR PRN 01/15/18 Fluticasone/Vilanterol [Breo Ellipta 100-25 Mcg Inhaler] 1 puff INHALATION DAILY 01/15/18 - Controlled Substance Measures Is patient prescribed a controlled substance at discharge?: No When asked, does pt state using other controlled substances?: No If prescribed controlled substance>3 days was MAPS reviewed?: No If Rx opioid, was Start Talking consent form obtained?: No If opioid is for acute pain is fill amount 7 days or less?: No Was information provided regarding opioid addiction?: No Additional CC's: Yossi Márquez Objective - Vital Signs Vital signs: Vital Signs Temp Pulse 94 10/27/18 12:08 Resp 16 10/27/18 12:08 BP 146/89 10/27/18 12:08 Pulse Ox 97 10/27/18 12:08
== END ==
LOC: PNWHC3 11:51
PROVIDERS: ATTEND Specialist
DX: G89.29 Other chronic pain (principal); M46.1 Sacroiliitis, not elsewhere classified; M47.816 Spondylosis without myelopathy or radiculopathy, lumbar region; M46.96 Unspecified inflammatory spondylopathy, lumbar region; Z98.890 Other specified postprocedural states; Z79.899 Other long term (current) drug therapy; Z79.82 Long term (current) use of aspirin
CPT/HCPCS: 99211

== ENCOUNTER 2019-05-28 08:48 | Day surgery (SDC) | payer MEDICARE, BC ==
[2019-05-13 16:04] VITALS: BMI 37.7
[2019-05-28 09:19] VITALS: TEMP 97.6
[2019-05-28] MEDS ORDERED: LIDOCAINE 1% 20 ML VIAL (10MG/ML) FOR IV START INTRADERMA ONE (09:35)
[2019-05-28 09:40] LABS: Glucose,Whole Blood 101 mg/dL (75-99)
[2019-05-28] MEDS ORDERED: IV FLUID CONTINUATION 1,000 ML IV ONE (11:12)
[2019-05-28 11:14] VITALS: RESP 18
[2019-05-28 11:34] VITALS: BP 132/78; PULSE 68
--- NOTE | 2019-05-28 11:36 | P.PCN ---
Date of Procedure: 05/28/19 Procedure(s) Performed: Bipolar Radiofrequency Ablation of Dorasal Ramus of L5, Lateral Branches of S1 and S2 ATTENDING PHYSICIAN: Ana Lilia Glass MD PREOPERATIVE DIAGNOSIS: Right Sacroiliac Joint Pain POSTOPERATIVE DIAGNOSIS: same PROCEDURE PERFORMED: Bipolar Radiofrequency Ablation of Dorasal Ramus of L5, Lateral Branches of S1, S2 and S3 SIDE: Right IV SEDATION none ESTIMATED BLOOD LOSS: None FLUOROSCOPY WAS USED. INDICATIONS FOR PROCEDURE: Patient has a clinical picture consistent with right sacroiliac joint dysfunction and has responded well to sacral radiofrequency ablation in the past. PROCEDURE AND FINDINGS: The patient was greeted in the pre procedure holding area. The risk, benefits and alternatives to the procedure were again reviewed with the patient and written informed consent was placed in the chart. Prior to the procedure a time out was completed, verifying correct patient, procedure, site, positioning, and implants and/or special equipment. An IV line was placed. The patient was taken to the procedure room and positioned prone on the fluoroscopy table. Routine monitors were applied including EKG leads, blood pressure cuff, and pulse oximetry. The skin was prepped with chlorhexidine and draped in the usual sterile fashion. A fluoroscopic AP view was used to identify the sacral ala and the right SI joint with the associated S1-S3 foramens medial to the SI joint line. A marker was used to debi the sacral ala and the lateral aspects of the S1-S3 foramen. [place] were made 1 cm apart to perform strip lesion. Then overlying skin and subcutaneous tissues were anesthetized using a 25-gauge 1-1/2-inch needle with 1% preservative free lidocaine for a total volume of 10 mls. Under AP and lateral fluorscopic views, 7 18 gauge 100 mm ReliOnan Bipolar RF needles with a 10 mm active tip were inserted at the L5 dorsal ramus and the lateral aspects of the S12 S3 foramens and advanced until it touched os. Confirmation of position was then made with a lateral fluoroscopic view to ensure that the tips were posterior to the posterior plate of the sacrum. Motor stimulation at 2 Hz and up to 2V was conducted between sequential probes. The patient had significant lower extremity contractions with initial probe placement. So the probes were we adjusted laterally and positioning was confirmed again in AP and lateral fluoroscopy views. There was no observable motor movement in the lower extremities and the patient confirmed this by her self-report. After satisfactory motor testing was completed at each level, approximately 0.5 mL of 4% Lidocaine was injected to anesthetize the radiofrequency ablation target. Radiofrequency probes were initially placed in probe numbers 1 & 2 and 4 & 5 Subsequently, bipolar radiofrequency ablation was carried out at each of the aforementioned locations with a probe temperature set to 85C for 150 seconds. The electrodes in spots 1 and 4 were then leap-frogged to spots 3 and 6 where bipolar radiofrequency ablation was again carried out with a probe temperature set to 85C for 150 seconds. Finally, the electrodes in spots 2 and 5 were then leap-frogged to spots 4 and 7 where bipolar radiofrequency ablation was again carried out with a probe temperature set to 85C for 150 seconds. Following lesioning the needles were removed. The needle insertion site was dressed appropriately. The patient was taken to the recovery room where they were monitored for a brief period of time. They tolerated the procedure well and were discharged home in stable condition with post procedural instructions. Follow-up will be in clinic in 4 weeks. COMPLICATIONS: None
--- NOTE | 2019-05-29 11:24 | FL ---
EXAMINATION TYPE: FL guided pain mgmt statistic DATE OF EXAM: 05/28/2019 HISTORY: Flouroscopy time 11 seconds of fluoroscopy provided. IMPRESSION: 1. Fluoroscopy time.
== END 2019-05-28 11:50 | disposition home or self-care (01) ==
LOC: ORPAIN 08:48
PROVIDERS: ATTEND Anesthesiology
DX: M53.3 Sacrococcygeal disorders, not elsewhere classified (principal); M46.1 Sacroiliitis, not elsewhere classified; M47.816 Spondylosis without myelopathy or radiculopathy, lumbar region; Z79.891 Long term (current) use of opiate analgesic; Z79.82 Long term (current) use of aspirin; Z79.890 Hormone replacement therapy; Z79.899 Other long term (current) drug therapy
CPT/HCPCS: 64635; 64640 ×3; J2001

== ENCOUNTER → 2019-06-25 | Outpatient (CLI) | payer MEDICARE, BC ==
[2019-06-25 13:48] VITALS: BP 138/88; PULSE 89; RESP 16
--- NOTE | 2019-06-25 14:11 | P.PN ---
Subjective Progress Note Date: 06/25/19 This is follow-up visit for this patient with a history of severe and chronic low back pain secondary to sacroiliitis , lumbar spondylosis with facet arthropathy, We have done interventional pain procedures radiofrequens ablation of the sacroiliac joint patient reports she gets excellent pain relief Patients currently on [place] 7,5/325 every 6 hours, Flexeril 10 3 times a day , Cymbalta daily she is getting prescription from her primary care Patient denies any side effects of the medication, denies excessive drowsiness or sleepiness, denies suicidal ideation, and reports that the current pain medication is helping to control the pain ,and improve activity of daily living ,Patient denies any motor or sensory deficit , patient denies any fever or night sweats, denies any change in the bowel movements or urination Physical Examinations : -Constitutional : Cooperative , not in acute distress . -HEENT : nech ; supple , no Lymphadenopathy , no Thyromegaly , normal thyroid size . eyes : no ptosis , no icterus, no photophobia . ENT : normal of hearing , normal oropharynx , no Thrush . - Respiratory : Chest clear to auscultations Bilaterally , no wheezing , no Rhonchi . - Cardiovascular : regular rate and rhythem , S1 , S2 , no S3 , no S4. - Gastrointestinal : abdomen soft no tenderness , bowel sounds positive all four quadrents , no organomegally . - Genitourinary : Defferred . - neurologic: Cranial nerve II to XII intact , no focal neurological deffecit . - Psychatric: alert , oriented X 3 , appropriate affect , intact judgment and insight . - Lymphatic : no Lymphadenopathy . - Musculoskeltal : exams of the cervical spine = motor strength normal bilateral upper extremities exams of the Lumber spine =motor strength lower extremities ,thigh and legs .5/5 deep tendon reflexes : normal Knee Jerk , normal ankle Jerk . Assessment and plan = Chronic low back pain secondary to sacroiliitis , lumbar spondylosis with facet arthropathy without myelopathy She had good result with the , radiofrequency ablation of the sacroiliac joint. He had excellent pain relief Patient should continue to use her pain medication [place] 7.5/325 every 6 hours and Flexeril 10 mg 3 times a day when necessary, she is getting prescription refilled from her PCP Plan she will follow up with the pain clinic when necessary. PQRS Measure Charge Sheet Measure #130: Documentation of Current Meds in Medical Chart: Patient's medications documented in chart Measure #226: Tobacco Use: Screen & Cessation Intervention: Pt not a tobacco user Measure #111: Pneumonia Vaccination: Pneumococcal vaccine administered or previously received Measure #47: Advance Care Plan: Advance care planning discussed & documented, pt chose/unable to give Measure #412: Opioid Treatment Agreement: No documentation of signed opioid treatment agreement Measure #408: Opioid Therapy Follow-up Evaluation: Patient had NO f/u eval minimum every 3 months during opioid therapy Measure #317: Preventitive Care & Scrn High Bld Press & F/U: Normal blood pressure, f/u not required Measure #128: Body Mass Index (BMI) Screening & Follow-up: BMI documented ABOVE normal parameters - f/u documented Measure #131: Pain Assessment & Follow-up: Pain positive & plan documented, Follow-up scheduled Measure #431: Unhealthy Alcohol Use Preventative Care & Scrn: Patient not identified as an unhealthy alcohol user PQRS Narrative: - Controlled Substance Measures Is patient prescribed a controlled substance at discharge?: No Objective - Vital Signs Vital signs: Vital Signs Temp Pulse 89 06/25/19 13:42 Resp 16 06/25/19 13:42 BP 138/88 06/25/19 13:42 Pulse Ox 97 06/25/19 13:42 Intake & Output 06/24/19 06/25/19 06/25/19 18:59 06:59 18:59 Weight 105.233 kg
== END | disposition home or self-care (01) ==
LOC: PNWHC3 12:41
PROVIDERS: ATTEND Specialist
DX: G89.29 Other chronic pain (principal); M46.1 Sacroiliitis, not elsewhere classified; M47.816 Spondylosis without myelopathy or radiculopathy, lumbar region; M46.96 Unspecified inflammatory spondylopathy, lumbar region; Z79.891 Long term (current) use of opiate analgesic; Z79.899 Other long term (current) drug therapy
CPT/HCPCS: 99211

== ENCOUNTER → 2019-07-08 | Outpatient (CLI) | payer MEDICARE, BC ==
[2019-07-08 13:24] VITALS: BP 160/78; PULSE 106; RESP 18
--- NOTE | 2019-07-10 14:46 | P.PAINPG ---
Subjective Progress Note Date: 07/08/19 This is a follow-up visit for this 59-year-old patient with a history of severe and chronic low back pain secondary to sacroiliitis , lumbar spondylosis with facet arthropathy, We have done interventional pain procedures, most recently a right sided SI joint radiofrequency ablation on 05/28/2019. she gets excellent pain relief and reports greater than 80% pain relief. She does not have any major pain complaints today, and would like to wait prior to scheduling left-sided SI joint radiofrequency ablation. Patients currently on [place] 7,5/325 every 6 hours, Flexeril 10 3 times a day , Cymbalta daily she is getting prescription from her primary care Patient denies any side effects of the medication, denies excessive drowsiness or sleepiness, denies suicidal ideation, and reports that the current pain medication is helping to control the pain ,and improve activity of daily l iving . Review of systems is negative for chest pain, shortness of breath, new onset weakness, numbness/tingling, abdominal pain, malaise, fever, night sweats, chills, homicidal or suicidal ideation, or bowel or bladder incontinence. Physical exam: Vitals: Reviewed in EMR GENERAL: Well appearing, in no acute distress PSYCH: Mood and affect is appropriate. Awake, alert, and oriented SKIN: Skin color, texture, turgor normal, no rashes or lesions HEENT: Normocephalic, atraumatic. EOM intact CV: No pedal edema RESP: Respirations are unlabored, no audible wheezing GI: Abdomen non-distended MUSCULOSKELETAL: Bilateral upper and lower extremity strength is normal and symmetric. No atrophy or tone abnormalities are noted. Lumbar spine: Straight leg raising in the sitting position is negative for radicular pain. Tenderness to palpation over the lumbar spine and paraspinous muscles bilaterally. Negative for pain with facet loading and back extension/rotation. Buttocks: Tennis to palpation over the left PSIS, Johanny's test is positive on left side NEUR: Bilateral lower extremity coordination and muscle stretch reflexes are physiologic and symmetric. Negative clonus bilaterally. No loss of sensation is noted. Assessment and plan = Chronic low back pain secondary to sacroiliitis , lumbar spondylosis with facet arthropathy without myelopathy She reports good results with the radiofrequency ablation of the sacroiliac joint, Reporting greater than 80% pain relief Patient should continue to use her pain medication [place] 7.5/325 every 6 hours and Flexeril 10 mg 3 times a day when necessary, she is getting prescription refilled from her PCP Plan she will follow up with the pain clinic when necessary for left- sided SI radial frequency ablation. Objective - Vital Signs Vital signs: Vital Signs Temp Pulse 106 H 07/08/19 13:18 Resp 18 07/08/19 13:18 BP 160/78 07/08/19 13:18 Pulse Ox 96 07/08/19 13:18 PQRS Measure Charge Sheet Measure #130: Documentation of Current Meds in Medical Chart: Patient's medications documented in chart Measure #226: Tobacco Use: Screen & Cessation Intervention: Pt not a tobacco user Measure #111: Pneumonia Vaccination: Pneumococcal vaccine administered or previously received Measure #47: Advance Care Plan: Advance care planning discussed & documented, pt chose/unable to give Measure #412: Opioid Treatment Agreement: No documentation of signed opioid treatment agreement Measure #317: Preventitive Care & Scrn High Bld Press & F/U: Pre-hypertensive or hypertensive BP documented, pt will f/u with PCP Measure #128: Body Mass Index (BMI) Screening & Follow-up: BMI documented ABOVE normal parameters - f/u documented Measure #131: Pain Assessment & Follow-up: Pain positive & plan documented, Follow-up scheduled Measure #431: Unhealthy Alcohol Use Preventative Care & Scrn: Patient not identified as an unhealthy alcohol user PQRS Narrative: Smoking Status Never smoker Narcotic Agreement Date Signed 04/19/14 Blood Pressure 160/78 Pain Intensity [Lower Back] 3 Scale Used Numeric (1 - 10) Hx Alcohol Use (MH) No Home Medications: Ambulatory Orders Albuterol Sulfate [Proair Hfa] 2 puff INHALATION Q4HR PRN 04/19/14 Atorvastatin Calcium [Lipitor] 20 mg PO DAILY 04/19/14 John Paul Cit/Mag/D3/Zn/Server Programmer/[place]/Bor [Citracal-Vit D + Magnesium Tab] 2 tab PO DAILY 04/19/14 Cyclobenzaprine [Flexeril] 10 mg PO TID PRN 04/19/14 DULoxetine HCL [Cymbalta] 120 mg PO DAILY 04/19/14 Diltiazem Cd [Cardizem CD] 180 mg PO DAILY 04/19/14 Docusate Sodium [Dulcolax Stool Softener] 2 tab PO DAILY 04/19/14 LORazepam [Ativan] 2 mg PO BID 04/19/14 Levothyroxine Sodium [Levoxyl] 25 mcg PO DAILY 04/19/14 Montelukast [Singulair] 10 mg PO DAILY 04/19/14 Pantoprazole Sodium [Protonix] 40 mg PO BID 04/19/14 Polyethylene Glycol 3350 [Miralax] 1 applic PO BID PRN 04/19/14 Topiramate [Topamax] 100 mg PO BID 04/19/14 buPROPion HCL [Wellbutrin XL] 450 mg PO HS 04/19/14 cloZAPine [Clozaril] 100 mg PO HS 04/19/14 Aspirin [Adult Low Dose Aspirin EC] 81 mg PO DAILY 12/02/15 Travoprost [Travatan Z 0.004%] 1 drop BOTH EYES HS 12/02/15 SUMAtriptan SUCCINATE [Imitrex] 100 mg PO BID PRN 01/24/16 Multivitamins, Thera [Multivitamin (formulary)] 1 tab PO DAILY 04/10/16 Lisdexamfetamine Dimesylate [Vyvanse] 30 mg PO QAM 10/22/17 Temazepam [Restoril] 15 mg PO HS PRN 10/22/17 Vits A,C,E/Lutein/Minerals [Ocuvite with Lutein Tablet] 1 each PO DAILY 10/22/17 HYDROcodone/APAP 7.5-325MG [[place] 7.5-325] 1 tab PO Q4-6H PRN 07/15/18 Fluticasone/Vilanterol [Breo Ellipta 100-25 Mcg Inhaler] 2 puff INHALATION DAILY 05/12/19 Potassium Chloride [Klor-Con 20] 20 mg PO 5XD 05/12/19 Controlled Substance Measures - Controlled Substance Measures Is patient prescribed a controlled substance at discharge?: No
== END ==
LOC: PNWHC3 12:37
PROVIDERS: ATTEND Anesthesiology
DX: G89.29 Other chronic pain (principal); M47.816 Spondylosis without myelopathy or radiculopathy, lumbar region; M46.96 Unspecified inflammatory spondylopathy, lumbar region; M46.1 Sacroiliitis, not elsewhere classified; Z79.899 Other long term (current) drug therapy; Z79.82 Long term (current) use of aspirin; Z79.891 Long term (current) use of opiate analgesic
CPT/HCPCS: 99211

== ENCOUNTER → 2019-11-04 | Outpatient (CLI) | payer MEDICARE, BC ==
[2019-11-04 11:19] VITALS: BP 143/77; PULSE 99; RESP 18
--- NOTE | 2019-11-04 12:14 | P.PAINPG ---
Subjective Progress Note Date: 11/04/19 This is follow-up visit for this patient with a history of severe and chronic low back pain secondary to sacroiliitis , lumbar spondylosis with facet arthropathy, We have done interventional pain procedures radiofrequens ablation of the Right sacroiliac joint May 2019, and we did the left side and June 2018 Patients currently on [place] 7,5/325 every 6 hours, Flexeril 10 3 times a day , Cymbalta daily she is getting prescription from her primary care Patient denies any side effects of the medication, denies excessive drowsiness or sleepiness, denies suicidal ideation, and reports that the current pain medication is helping to control the pain ,and improve activity of daily l iving ,Patient denies any motor or sensory deficit , patient denies any fever or night sweats, denies any change in the bowel movements or urination,currently patient complaining of increased pain on the left side of the low back area and radiated to the left buttock area Objective - Vital Signs Vital signs: Vital Signs Temp Pulse 99 11/04/19 11:07 Resp 18 11/04/19 11:07 BP 143/77 11/04/19 11:07 Pulse Ox 97 11/04/19 11:07 - Exam Physical Examinations : -Constitutiona : Cooperative , not in acute distress . -HEENT : nech : supple , no Lymphadenopathy , normal thyroid size . : eyes : no ptosis , no icterus, no photophobia . - neurologic : Cranial nerve II to XII intact , no focal neurological deffecit . -psychatric : alert , oriented X 3 , appropriate affect , intact judgment and insight . -Lymphatic : no Lymphadenopathy . - musculoskeltal : Lumber spine moter stegnth lower extremities ,thigh and legs 5/5 Right side , 5/5 Left side deep tendon reflexes : normal Knee Jerk , normal ankle Jerk lumber facet Loading Test =positive Right , positive Left Range of motion of the lumbar spine Flexion 30 degrees, extension 10 degrees strait leg raising test = positive at 60 degree Fabere test= positive Right , and positive LT . Sever tenderness over the Sacroiliac joint on the Left sides [place] test= positive on the left side . Seated flexion test= positive on the Left side. Assessment and Plan Plan: assessment and plan= low back pain secondary to lumbar spondylosis and facet arthropathy, and sacroiliitis Patient could benefit from repeat radiofrequency thermocoagulation of the left sacroiliac joint,(RFA of the left L5-S1 dorsal Romus, and RFA of the lateral branches of S1/S2/S3 Time with Patient: Less than 30 PQRS Measure Charge Sheet Measure #130: Documentation of Current Meds in Medical Chart: Patient's medications documented in chart Measure #226: Tobacco Use: Screen & Cessation Intervention: Pt not a tobacco user Measure #111: Pneumonia Vaccination: Pneumococcal vaccine administered or previously received Measure #47: Advance Care Plan: Advance care planning discussed & documented, pt chose/unable to give Measure #412: Opioid Treatment Agreement: No documentation of signed opioid treatment agreement Measure #408: Opioid Therapy Follow-up Evaluation: Patient had NO f/u eval minimum every 3 months during opioid therapy Measure #317: Preventitive Care & Scrn High Bld Press & F/U: Pre-hypertensive or hypertensive BP documented, pt will f/u with PCP Measure #128: Body Mass Index (BMI) Screening & Follow-up: BMI documented ABOVE normal parameters - f/u documented Measure #131: Pain Assessment & Follow-up: Pain positive & plan documented, Follow-up scheduled Measure #431: Unhealthy Alcohol Use Preventative Care & Scrn: Patient not identified as an unhealthy alcohol user PQRS Narrative: Smoking Status Never smoker Narcotic Agreement Date Signed 04/19/14 Blood Pressure 143/77 Pain Intensity [Left Buttock] 8 Scale Used Numeric (1 - 10) Hx Alcohol Use (MH) No Home Medications: Ambulatory Orders Albuterol Sulfate [Proair Hfa] 2 puff INHALATION Q4HR PRN 04/19/14 Atorvastatin Calcium [Lipitor] 20 mg PO DAILY 04/19/14 John Paul Cit/Mag/D3/Zn/Chief Development Officer/[place]/Bor [Citracal-Vit D + Magnesium Tab] 2 tab PO DAILY 04/19/14 Cyclobenzaprine [Flexeril] 10 mg PO TID PRN 04/19/14 DULoxetine HCL [Cymbalta] 120 mg PO DAILY 04/19/14 Diltiazem Cd [Cardizem CD] 180 mg PO DAILY 04/19/14 Docusate Sodium [Dulcolax Stool Softener] 2 tab PO DAILY 04/19/14 LORazepam [Ativan] 2 mg PO BID 04/19/14 Levothyroxine Sodium [Levoxyl] 25 mcg PO DAILY 04/19/14 Montelukast [Singulair] 10 mg PO DAILY 04/19/14 Pantoprazole Sodium [Protonix] 40 mg PO BID 04/19/14 Polyethylene Glycol 3350 [Miralax] 1 applic PO BID PRN 04/19/14 Topiramate [Topamax] 100 mg PO BID 04/19/14 buPROPion HCL [Wellbutrin XL] 450 mg PO HS 04/19/14 cloZAPine [Clozaril] 100 mg PO HS 04/19/14 Aspirin [Adult Low Dose Aspirin EC] 81 mg PO DAILY 12/02/15 Travoprost [Travatan Z 0.004%] 1 drop BOTH EYES HS 12/02/15 SUMAtriptan SUCCINATE [Imitrex] 100 mg PO BID PRN 01/24/16 Multivitamins, Thera [Multivitamin (formulary)] 1 tab PO DAILY 04/10/16 Lisdexamfetamine Dimesylate [Vyvanse] 30 mg PO QAM 10/22/17 Temazepam [Restoril] 15 mg PO HS PRN 10/22/17 Vits A,C,E/Lutein/Minerals [Ocuvite with Lutein Tablet] 1 each PO DAILY 10/22/17 HYDROcodone/APAP 7.5-325MG [[place] 7.5-325] 1 tab PO Q4-6H PRN 07/15/18 Fluticasone/Vilanterol [Breo Ellipta 100-25 Mcg Inhaler] 2 puff INHALATION DAILY 05/12/19 Potassium Chloride [Klor-Con 20] 20 meq PO 5XD 05/12/19 Ramipril 10 mg PO DAILY 11/02/19 Controlled Substance Measures - Controlled Substance Measures Is patient prescribed a controlled substance at discharge?: No
== END ==
LOC: PNWHC3 10:54
PROVIDERS: ATTEND Specialist
DX: M47.816 Spondylosis without myelopathy or radiculopathy, lumbar region (principal); M46.96 Unspecified inflammatory spondylopathy, lumbar region; M46.1 Sacroiliitis, not elsewhere classified; Z79.899 Other long term (current) drug therapy; Z79.82 Long term (current) use of aspirin; Z79.891 Long term (current) use of opiate analgesic
CPT/HCPCS: 99211

== ENCOUNTER 2019-12-02 09:17 | Day surgery (SDC) | payer MEDICARE, BC ==
[2019-11-30 10:42] VITALS: BMI 36.0
[~2019-12-02 09:17] MED LIST changes: +BUPIVACAINE (PF) 0.5% 30 ML VIAL ONE; +LIDOCAINE 1% INJ 10MG/ML (20 ML MDV) ONE; +TRIAMCINOLONE ACETONIDE 40 MG/ML 1 ML VIAL ONE; +methylPREDNISolone ACETATE 40 MG/ML 1 ML VIAL ONE
[2019-12-02 10:19] VITALS: RESP 16; TEMP 97.3
[2019-12-02 10:21] LABS: Glucose,Whole Blood 108 mg/dL (75-99)
[2019-12-02 12:20] VITALS: BP 125/80; PULSE 87
--- NOTE | 2019-12-02 15:09 | P.PCN ---
Date of Procedure: 12/02/19 Description of Procedure: PREOPERATIVE DIAGNOSIS: 1. Lumbosacral Spondylosis 2. Bilateral sacroiliitis. POSTOPERATIVE DIAGNOSIS: 1-Lumbosacral spondylosis 2-Bilateral sacroiliitis. PROCEDURES: 1. Left radiofrequency thermocoagulation/ablation of the L5 dorsal ramus. 2. Left multi-site radiofrequency thermocoagulation/ablation of the S1, S2, and S3 lateral branchs. The procedure was performed using fluoroscopic guidance during needle placement to assure proper position and maximize safety. PROVIDER: Darwin Cotto M.D. ANESTHESIA: Local Anesthesia only EBL: NONE INDICATION/MEDICAL NECESSITY: History of low back pain secondary Right Lumbosacral Spondylosis and lumbosacral arthropathy unresponsive to more conservative treatments. The patient reported more than 50% relief of pain symptoms following 2 previous diagnostic blocks with Bupivacaine. PROCEDURE DESCRIPTION: The patient was seen and identified in the preoperative area. Risks, benefits, complications, and alternatives were discussed with the patient. The patient agreed to proceed with the procedure and signed the consent. Vital signs were checked before and after the procedure and they remained stable. Patient ambulated to the procedure room and time out was completed. The patient was placed in the prone position on the procedure table and a pillow was placed under the abdomen to reduce lumbar lordosis. The lumbosacral area was prepped and draped in the usual sterile fashion. Critical pause was taken. L5 Dorsal Ramus RF: Using right oblique fluoroscopy, the junction of the transverse process and the superior articular process of the right S1 vertebra, which correspond to the fluoroscopic image of the "eye of the [place] dog" was identified. Subsequently, a 10-cm 18-gauge radiofrequency cannula with a 10-mm active tip was advanced under fluoroscopic guidance until contact was made with periosteum. At this level, the Sensory testing of the L5 dorsal ramus was performed at 50 Hz and 0 to 1 volt with production of concordant pain starting at 0.5 volt. Motor stimulation was done at 2 Hz with stimulation of mulitifidus muscle contration at 1.5 volts. No radicular symptoms or paresthesias were produced during the testing. Subsequently, the L5 dorsal ramus was subjected to a radiofrequency abl ation at a mode of 90 seconds at 80 degrees Celsius after negative motor and sensory testing and after injecting with a solution consisting of 0.5% ropivacaine with 40 mg of Depo-Medrol 0.5 ml injected in each cannula The needle was withdrawn intact the procedure was repeated on the left side using the same technique. S1, S3, and S3 Lateral Branch RF: The lateral margins of the Right S1, S2, and S3 foramina were identified using AP fluoroscopy. Under fluoroscopic guidance, three 10-cm 18-gauge radiofrequency cannula with a 10-mm active tip were inserted at 8-10 mm peripheral to the posterior S1 foramen, at various locations using clock-face coordinates. The center of the clock was registered at the lateral margin of the foramen. The 2:30, 4:00, and 5:30 oclock positions were used. At this level, the motor testing of the S1 lateral branch was performed at 2 Hz. No radicular symptoms or paresthesias were produced during the testing. Subsequently, the S1 lateral branch was subjected to a radiofrequency ablation at a mode of 90 seconds at 80 degrees Celsius at the 3 levels after negative motor testing and after injecting a solution consisting of 0.5% ropivacaine with 40 mg of Kenalog 0.5 ml injected in each cannula. The same procedure was performed at the level of the S2 and S3 foramina. Motor testing followed by radiofrequency ablation were performed as described. The needle was withdrawn intact after each injection. There was some unexpected bleeding with near immediate bruising. I instructed patient to utilize ice packs and notified her that there could be soreness and superior medial aspect of her gluteal muscle. COMPLICATIONS: The patient tolerated the procedure well without any acute complications. DISPOSTION/PLAN: The patient ambulated to the recovery area after the procedure in a stable condition for observation. Patient was reexamined prior to discharge. Patient was observed for 30 minutes in the recovery area and was discharged home, accompanied by an adult, after meeting discharged criteria. Discharge instructions were give to the patient by the staff. Patient was specifically instructed not to drive today and to rest for the rest of the day. The patient will schedule a follow up visit in the clinic in 4 weeks.
--- NOTE | 2019-12-02 15:42 | FL ---
Fluoroscopy HISTORY: Pain 49 seconds fluoroscopy time supplied to the referring clinician. 5 intraoperative C-arm images docum ent the procedure. See dictated report from anesthesia.
== END 2019-12-02 12:27 | disposition home or self-care (01) ==
LOC: ORPAIN 09:17
PROVIDERS: ATTEND Anesthesiology
DX: G89.29 Other chronic pain (principal); M47.817 Spondylosis without myelopathy or radiculopathy, lumbosacral region; M46.1 Sacroiliitis, not elsewhere classified; M96.1 Postlaminectomy syndrome, not elsewhere classified; E11.9 Type 2 diabetes mellitus without complications; Z88.5 Allergy status to narcotic agent; Z79.82 Long term (current) use of aspirin; Z79.51 Long term (current) use of inhaled steroids; Z79.890 Hormone replacement therapy; Z79.899 Other long term (current) drug therapy
CPT/HCPCS: 64640 ×3; 64635; J2001

== ENCOUNTER → 2020-01-07 | Outpatient (CLI) | payer MEDICARE, BC ==
[2020-01-07 13:34] VITALS: BP 147/92; PULSE 88; RESP 16
--- NOTE | 2020-01-07 14:01 | P.PAINPG ---
Subjective Progress Note Date: 01/07/20 This is a follow-up visit for this 59-year-old patient with a history of severe and chronic low back pain secondary to sacroiliitis , lumbar spondylosis with facet arthropathy, We have done interventional pain procedures, most recently a left sided SI joint radiofrequency ablation. she gets excellent pain relief and reports having no pain on the left side currently. She has undergone right-sided SI joint radial frequency ablation in the past, and is requesting a repeat procedure on the right side. Patients currently on [place] 7,5/325 every 6 hours, Flexeril 10 milligrams 3 times a day , Cymbalta daily she is getting prescription from her primary care Patient denies any side effects of the medication, denies excessive drowsiness or sleepiness, denies suicidal ideation, and reports that the current pain medication is helping to control the pain ,and improve activity of daily living . Review of systems is negative for chest pain, shortness of breath, new onset weakness, numbness/tingling, abdominal pain, malaise, fever, night sweats, chills, homicidal or suicidal ideation, or bowel or bladder incontinence. Physical exam: Vitals: Reviewed in EMR GENERAL: Well appearing, in no acute distress, seated in a wheelchair PSYCH: Mood and affect is appropriate. Awake, alert, and oriented SKIN: Skin color, texture, turgor normal, no rashes or lesions HEENT: Normocephalic, atraumatic. EOM intact CV: No pedal edema RESP: Respirations are unlabored, no audible wheezing GI: Abdomen non-distended MUSCULOSKELETAL: Bilateral lower extremity strength is normal and symmetric. No atrophy or tone abnormalities are noted. Buttocks: Tennis to palpation over the right PSIS, Johanny's test is positive on right side, sacral thrust positive on the right side NEUR: No loss of sensation is noted. Assessment and plan = Chronic low back pain secondary to sacroiliitis , lumbar spondylosis with facet arthropathy without myelopathy She reports good results with the radiofrequency ablation of the left sacroiliac joint, done recently; she has undergone right-sided SI radiofrequency ablation in the past with excellent benefit, last on May 2019, she would likely benefit from a repeat procedure, we will schedule this. Patient can continue to use her pain medication [place] 7.5/325 every 6 hours and Flexeril 10 mg 3 times a day when necessary, she is getting prescription refilled from her PCP Plan she will follow up with the pain clinic for right SI radiofrequency ablation. PQRS Measure Charge Sheet Measure #130: Documentation of Current Meds in Medical Chart: Patient's medications documented in chart Measure #226: Tobacco Use: Screen & Cessation Intervention: Pt not a tobacco user Measure #111: Pneumonia Vaccination: Pneumococcal vaccine administered or previously received Measure #47: Advance Care Plan: Advance care planning discussed & documented, pt chose/unable to give Measure #412: Opioid Treatment Agreement: No documentation of signed opioid treatment agreement Measure #317: Preventitive Care & Scrn High Bld Press & F/U: Pre-hypertensive or hypertensive BP documented, pt will f/u with PCP Measure #128: Body Mass Index (BMI) Screening & Follow-up: BMI documented ABOVE normal parameters - f/u documented Measure #131: Pain Assessment & Follow-up: Pain positive & plan documented, Follow-up scheduled Measure #431: Unhealthy Alcohol Use Preventative Care & Scrn: Patient not identified as an unhealthy alcohol user PQRS Measure Charge Sheet PQRS Narrative: Smoking Status Never smoker Narcotic Agreement Date Signed 04/19/14 Pain Intensity [Lower Back] 0 Scale Used Numeric (1 - 10) Hx Alcohol Use (MH) No Home Medications: Ambulatory Orders Albuterol Sulfate [Proair Hfa] 2 puff INHALATION Q4HR PRN 04/19/14 Atorvastatin Calcium [Lipitor] 20 mg PO DAILY 04/19/14 John Paul Cit/Mag/D3/Zn/Ciaio Counter Molder/[place]/Bor [Citracal-Vit D + Magnesium Tab] 2 tab PO DAILY 04/19/14 Cyclobenzaprine [Flexeril] 10 mg PO TID PRN 04/19/14 DULoxetine HCL [Cymbalta] 120 mg PO DAILY 04/19/14 Diltiazem Cd [Cardizem CD] 180 mg PO DAILY 04/19/14 Docusate Sodium [Dulcolax Stool Softener] 2 tab PO DAILY 04/19/14 LORazepam [Ativan] 2 mg PO BID 04/19/14 Levothyroxine Sodium [Levoxyl] 25 mcg PO DAILY 04/19/14 Montelukast [Singulair] 10 mg PO DAILY 04/19/14 Pantoprazole Sodium [Protonix] 40 mg PO BID 04/19/14 Polyethylene Glycol 3350 [Miralax] 1 dose PO BID PRN 04/19/14 Topiramate [Topamax] 100 mg PO BID 04/19/14 buPROPion HCL [Wellbutrin XL] 450 mg PO HS 04/19/14 cloZAPine [Clozaril] 100 mg PO HS 04/19/14 Aspirin [Adult Low Dose Aspirin EC] 81 mg PO DAILY 12/02/15 Travoprost [Travatan Z 0.004%] 1 drop BOTH EYES HS 12/02/15 SUMAtriptan SUCCINATE [Imitrex] 100 mg PO BID PRN 01/24/16 Multivitamins, Thera [Multivitamin (formulary)] 1 tab PO DAILY 04/10/16 Lisdexamfetamine Dimesylate [Vyvanse] 30 mg PO QAM 10/22/17 Temazepam [Restoril] 15 mg PO HS PRN 10/22/17 Vits A,C,E/Lutein/Minerals [Ocuvite with Lutein Tablet] 1 each PO DAILY 10/22/17 HYDROcodone/APAP 7.5-325MG [[place] 7.5-325] 1 tab PO Q4-6H PRN 07/15/18 Fluticasone/Vilanterol [Breo Ellipta 100-25 Mcg Inhaler] 2 puff INHALATION DAILY PRN 05/12/19 Potassium Chloride [Klor-Con 20] 20 meq PO 5XD 05/12/19 Ramipril 10 mg PO DAILY 11/02/19 Controlled Substance Measures - Controlled Substance Measures Is patient prescribed a controlled substance at discharge?: No
== END | disposition home or self-care (01) ==
LOC: PNWHC3 12:29
PROVIDERS: ATTEND Anesthesiology
DX: G89.29 Other chronic pain (principal); M53.3 Sacrococcygeal disorders, not elsewhere classified; M47.816 Spondylosis without myelopathy or radiculopathy, lumbar region; M46.96 Unspecified inflammatory spondylopathy, lumbar region; Z98.890 Other specified postprocedural states; Z79.82 Long term (current) use of aspirin; Z79.899 Other long term (current) drug therapy
CPT/HCPCS: 99211

== ENCOUNTER 2020-01-25 09:06 | Day surgery (SDC) | payer MEDICARE, BC ==
[2020-01-21 17:19] VITALS: BMI 36.9
[2020-01-25] MEDS ORDERED: LACTATED RINGERS 1,000 ML IV SCH (09:44)
[2020-01-25 10:03] VITALS: RESP 16; TEMP 97.1
[2020-01-25 10:07] LABS: Glucose,Whole Blood 105 mg/dL (75-99)
[2020-01-25] MEDS ORDERED: BUPIVACAINE (PF) 0.5% 30 ML VIAL ONE (10:35)
[2020-01-25] MEDS ORDERED: methylPREDNISolone ACETATE 40 MG/ML 1 ML VIAL ONE (10:35)
--- NOTE | 2020-01-25 11:21 | P.PCN ---
Date of Procedure: 01/25/20 Description of Procedure: Bipolar Radiofrequency Ablation of Dorasal Ramus of L5, Lateral Branches of S1 and S2 and S3 ATTENDING PHYSICIAN: Darwin Cotto MD PREOPERATIVE DIAGNOSIS: Lumbosacral spondylosis POSTOPERATIVE DIAGNOSIS: same PROCEDURE PERFORMED: Bipolar Radiofrequency Ablation of Dorasal Ramus of L5, Lateral Branches of S1, S2 and S3 SIDE: Right IV SEDATION none ESTIMATED BLOOD LOSS: None FLUOROSCOPY WAS USED. INDICATIONS FOR PROCEDURE: Patient has a clinical picture consistent with right sacroiliac joint dysfunction and has responded well to sacral radiofrequency ablation in the past. PROCEDURE AND FINDINGS: The patient was greeted in the pre procedure holding area. The risk, benefits and alternatives to the procedure were again reviewed with the patient and written informed consent was placed in the chart. Prior to the procedure a time out was completed, verifying correct patient, procedure, site, positioning, and implants and/or special equipment. An IV line was placed. The patient was taken to the procedure room and positioned prone on the fluoroscopy table. Routine monitors were applied including EKG leads, blood pressure cuff, and pulse oximetry. The skin was prepped with chlorhexidine and draped in the usual sterile fashion. A fluoroscopic AP view was used to identify the sacral ala and the right SI joint with the associated S1-S3 foramens medial to the SI joint line. A marker was used to debi the sacral ala and the lateral aspects of the S1-S3 foramen. Barragan were made 1 cm apart to perform strip lesion. Then overlying skin and subcutaneous tissues were anesthetized using a 25-gauge 1-1/2-inch needle with 1% preservative free lidocaine for a total volume of 10 mls. Under AP and lateral fluorscopic views, 7 18 gauge 100 mm [employer] Bipolar RF needles with a 10 mm active tip were inserted at the L5 dorsal ramus and the lateral aspects of the S1,S2, S3 foramens and advanced until it touched os. Confirmation of position was then made with a lateral fluoroscopic view to ensure that the tips were posterior to the posterior plate of the sacrum. Motor stimulation at 2 Hz and up to 2V was conducted between sequential probes. The patient had significant lower extremity contractions with initial probe placement. So the probes were we adjusted laterally and positioning was confirmed again in AP and lateral fluoroscopy views. There was no observable motor movement in the lower extremities and the patient confirmed this by her self-report. There is no pain during radio frequency ablation in her buttock or into her right extremity. After satisfactory motor testing was completed at each level, approximately 0.5 mL of 1% Lidocaine was injected to anesthetize the radiofrequency ablation target. Radiofrequency probes were initially placed in probe numbers 1 & 2 and 3 & 4 Subsequently, bipolar radiofrequency ablation was carried out at each of the aforementioned locations with a probe temperature set to 80C for 90 seconds with 2 rutherford. I then injected solution consisting of 5 ML's 0.5% bupivacaine and 40 mg of Depo-Medrol with 1 mL at each needle site for total of injections. Following lesioning the needles were removed. The needle insertion site was dressed appropriately. The patient was taken to the recovery room where they were monitored for a brief period of time. They tolerated the procedure well and were discharged home in stable condition with post procedural instructions. Follow-up will be in clinic in 4 weeks.
[2020-01-25 11:33] VITALS: BP 114/75; PULSE 91
--- NOTE | 2020-01-25 14:46 | FL ---
Fluoroscopy HISTORY: Pain 24 seconds fluoroscopy time supplied to the referring clinician. 2 intraoperative C-arm images docum ent the procedure. See dictated report from anesthesia.
== END 2020-01-25 11:37 | disposition home or self-care (01) ==
LOC: ORPAIN 09:06
PROVIDERS: ATTEND Anesthesiology
DX: M47.816 Spondylosis without myelopathy or radiculopathy, lumbar region (principal); Z88.5 Allergy status to narcotic agent; Z90.710 Acquired absence of both cervix and uterus; Z79.82 Long term (current) use of aspirin
CPT/HCPCS: 64625; J1030; J2795; 64635; 64640; 99152; 99153